=== PATIENT | female | born 1935 ===

== ENCOUNTER 2017-03-02 09:02 | Inpatient (IN) | payer MEDICARE, OTHER ==
[2017-03-02] MEDS ORDERED: Sodium Chloride 0.9% 1,000 ML IV ONE (09:55)
--- NOTE | 2017-03-02 09:59 | C.PDOC ---
History Of Present Illness 81 yr old female with PMHx of HTN, presents to the ER for upper abdominal pain for 1 day. Patient also reports of associated with multiple non bilious vomiting. Patient denies fever, chest pain, SOB, nausea, vomiting, diarrhea, constipation, weakness or numbness. Time Seen by Provider: 03/02/17 09:21 Chief Complaint (Nursing): Abdominal Pain History Per: Patient History/Exam Limitations: no limitations Onset/Duration Of Symptoms: Days (1) Current Symptoms Are (Timing): Still Present Past Medical History Reviewed: Historical Data, Nursing Documentation, Vital Signs Vital Signs: Last Vital Signs Temp 97.6 F 03/02/17 11:42 Pulse 67 03/02/17 11:42 Resp 18 03/02/17 11:42 BP 133/68 03/02/17 11:42 Pulse Ox 98 03/02/17 16:23 - Medical History PMH: Cardia Arrhythmia, HTN Family History: States: No Known Family Hx - Social History Hx Tobacco Use: No Hx Alcohol Use: No Hx Substance Use: No - Immunization History Hx Tetanus Toxoid Vaccination: No Hx Influenza Vaccination: No Hx Pneumococcal Vaccination: No Review Of Systems Except As Marked, All Systems Reviewed And Found Negative. Constitutional: Negative for: Fever Cardiovascular: Negative for: Chest Pain Respiratory: Negative for: Shortness of Breath Gastrointestinal: Positive for: Abdominal Pain (Upper). Negative for: Nausea, Vomiting, Diarrhea, Constipation Neurological: Negative for: Weakness, Numbness Physical Exam - Physical Exam Appears: Well, Non-toxic, No Acute Distress Skin: Warm, Dry, No Rash Head: Atraumatic, Normacephalic Oral Mucosa: Dry Throat: Normal, No Erythema, No Exudate Chest: Symmetrical, No Tenderness Cardiovascular: Rhythm Regular, No Murmur Respiratory: Normal Breath Sounds, No Rales, No Rhonchi, No Wheezing Gastrointestinal/Abdominal: Soft, Tenderness (Mild upper abdominal tenderness), No Mass, No Guarding, No Rebound Back: Normal Inspection, No CVA Tenderness Extremity: Normal ROM, No Swelling Neurological/Psych: Oriented x3, Normal Speech, Normal Motor, Normal Sensation ED Course And Treatment - Laboratory Results Result Diagrams: 03/02/17 10:10 03/02/17 10:10 Lab Interpretation: Abnormal ECG: Interpreted By Me, Viewed By Me ECG Rhythm: Sinus Rhythm ECG Interpretation: Normal Rate From EC (BPM) O2 Sat by Pulse Oximetry: 98 (RA) Pulse Ox Interpretation: Normal - CT Scan/US CT - Abd & Pelvis Other Rad Studies (CT/US): Read By Radiologist, Radiology Report Reviewed CT/US Interpretation: PROCEDURE: CT Abdomen and Pelvis without intravenous contrast. HISTORY: Pain. COMPARISON: 01/31/2017. TECHNIQUE: Without contrast.. Contrast Dose: 0. Radiation dose: Total exam DLP = 275.93 mGy-cm. This CT exam was performed using one or more of the following dose reduction techniques: Automated exposure control, adjustment of the mA and/or kV according to patient size, and/or use of iterative reconstruction technique. FINDINGS: LOWER THORAX: No infiltrate/ pleural effusion. Minimal subsegmental atelectasis in lingular segment left upper lobe. Small hiatal hernia. LIVER: Unremarkable. No gross lesion or ductal dilatation. GALLBLADDER AND BILE DUCTS: Unremarkable. PANCREAS: Unremarkable. No gross lesion or ductal dilatation. SPLEEN: Unremarkable. ADRENALS: Unremarkable. No mass. KIDNEYS AND URETERS: Unremarkable. No hydronephrosis. No solid mass. VASCULATURE: Unremarkable. No aortic aneurysm. BOWEL: The appendix is enlarged, measuring up to 14 mm in diameter. There is no clear luminal fluid identified. There is periappendiceal inflammatory change noted in the surrounding fat. There are small reactive nodes seen medial to the cecum. There is no periappendiceal abscess. There is no evidence free intraperitoneal air. Findings are consistent with acute appendicitis. There is diverticulosis of the sigmoid colon. There is no evidence of diverticulitis. There is no bowel obstruction. No other abnormal bowel loops are identified. APPENDIX: As above. PERITONEUM: Unremarkable. No free fluid. No free air. LYMPH NODES: Unremarkable. No enlarged lymph nodes. BLADDER: Unremarkable. REPRODUCTIVE: Unremarkable postmenopausal uterus. BONES: No acute fracture. OTHER FINDINGS : None. IMPRESSION: Findings consistent with acute uncomplicated appendicitis. No periappendiceal abscess or evidence of perforation. Additional minor findings as above. The finding of acute appendicitis was discussed by telephone with Katerina Rodriguez APN., at 12:16 p.m. on 03/02/2017. Progress Note: Treated with IVF NSS and zofran. Rocephin 1 GM IV. On re- evaluation abdomen soft. Case discussed and patient evaluated by Dr Cain and requests admission to medical service Reassessment Condition: Improved - Physician Consult Information Physician Contacted: Luz Marina Alfaro Outcome Of Conversation: admit to hospitalis Medical Decision Making Medical Decision Making: PLAN: * CT - Abd & Pelvis * EKG * CBC * Urinalysis * Zofran IVP * sodium Chloride IV Disposition Discussed With Dr.: Edgardo Long Doctor Will See Patient In The: Hospital - Disposition Disposition: HOSPITALIZED Disposition Time: 16:30 Condition: STABLE - POA Present On Arrival: None - Clinical Impression Clinical Impression: Abdominal pain, Appendicitis, unqualified - PA / FAMILY PRACTITIONER / Resident Statement MD/DO has reviewed & agrees with the documentation as recorded. - Scribe Statement The provider has reviewed the documentation as recorded by the Scribe Krupa Amaral All medical record entries made by the Scribe were at my direction and personally dictated by me. I have reviewed the chart and agree that the record accurately reflects my personal performance of the history, physical exam, medical decision making, and the department course for this patient. I have also personally directed, reviewed, and agree with the discharge instructions and disposition. Decision To Admit - Pt Status Changed To: Hospital Disposition Of: Inpatient - Admit Certification Admit to Inpatient:: After my assessment, the patient will require hospitalization for at least two midnights. This is because of the severity of symptoms shown, intensity of services needed, and/or the medical risk in this patient being treated as an outpatient. - InPatient: Physician Admission Certification:: Abdominal Pain. Dilated Appendix - . Bed Request Type: Regular Admitting Physician: Edgardo Long Patient Diagnosis: Abdominal pain
[2017-03-02 10:16] LABS: BASO % 0.2 % (0.0-2.0); EOS # 0.1 K/uL (0.0-0.7); EOS % 0.7 % (0.0-4.0); HEMATOCRIT 39.4 % (34.0-47.0); LYMPH # 0.8 K/uL (1.0-4.3); LYMPH % 6.9 % (20.0-40.0); MEAN CELL VOLUME 85.3 fL (81.0-99.0); MEAN CORPUSCULAR HEMOGLOBIN 28.1 pg (27.0-31.0); MEAN PLATELET VOLUME 12.1 fL (7.2-11.7); MONO # 0.9 K/uL (0.0-0.8); MONO % 7.2 % (0.0-10.0); PLATELET COUNT 144 K/uL (130-400); RED CELL DISTRIBUTION WIDTH 13.8 % (11.5-14.5); WHITE BLOOD COUNT 12.1 K/uL (4.8-10.8)
[2017-03-02 10:22] LABS: RBC URINE 3 /hpf (0-3); URINE BACTERIA RARE (<OCC); URINE BILIRUBIN NEGATIVE (NEGATIVE); URINE BLOOD NEGATIVE (NEGATIVE); URINE COLOR Yellow (YELLOW); URINE GLUCOSE (UA) 1+ mg/dL (Normal); URINE KETONE NEGATIVE (NEGATIVE); URINE LEUKOCYTE ESTERASE 2+ Leu/uL (Negative); URINE PROTEIN 1+ mg/dL (NEGATIVE); URINE UROBILINOGEN NORMAL mg/dL (0.2-1.0); WBC URINE 21 /hpf (0-5)
[2017-03-02 10:23] LABS: CHLORIDE 100 mmol/L (98-107); POTASSIUM 3.8 mmol/L (3.6-5.2); SODIUM 141 mmol/L (132-148)
[2017-03-02 10:25] LABS: AST/SGOT 32 U/L (14-36); BILIRUBIN,TOTAL 0.7 mg/dL (0.2-1.3); CARBON DIOXIDE 25 mmol/L (22-30); GFR AFRICAN-AMERICAN > 60
[2017-03-02 10:26] LABS: ALB/GLOB RATIO 1.2 (1.0-2.1); ALKALINE PHOSPHATASE 71 U/L (38-126); ALT/SGPT 20 U/L (9-52); BLOOD UREA NITROGEN 15 mg/dL (7-17); CALCIUM 8.2 mg/dl (8.6-10.4); GLUCOSE,RANDOM 109 mg/dL (65-105); TOTAL PROTEIN 7.6 g/dL (6.3-8.3)
[2017-03-02] MEDS ORDERED: Sodium Chloride 0.9% 1,000 ML ONE (10:28)
[2017-03-02 10:39] LABS: NEUTROPHIL 82 % (50-75); REACTIVE LYMPHOCYTES 1 % (0-0); TOTAL CELLS COUNTED 100
[2017-03-02 10:41] LABS: LARGE PLATELETS PRESENT
--- NOTE | 2017-03-02 12:19 | CT ---
PROCEDURE: CT Abdomen and Pelvis without intravenous contrast HISTORY: Pain COMPARISON: 01/31/2017 TECHNIQUE: Without contrast.. Contrast Dose: 0 Radiation dose: Total exam DLP = 275.93 mGy-cm. This CT exam was performed using one or more of the following dose reduction techniques: Automated exposure control, adjustment of the mA and/or kV according to patient size, and/or use of iterative reconstruction technique. FINDINGS: LOWER THORAX: No infiltrate/ pleural effusion. Minimal subsegmental atelectasis in lingular segment left upper lobe. Small hiatal hernia. LIVER: Unremarkable. No gross lesion or ductal dilatation. GALLBLADDER AND BILE DUCTS: Unremarkable. PANCREAS: Unremarkable. No gross lesion or ductal dilatation. SPLEEN: Unremarkable. ADRENALS: Unremarkable. No mass. KIDNEYS AND URETERS: Unremarkable. No hydronephrosis. No solid mass. VASCULATURE: Unremarkable. No aortic aneurysm. BOWEL: The appendix is enlarged, measuring up to 14 mm in diameter. There is no clear luminal fluid identified. There is periappendiceal inflammatory change noted in the surrounding fat. There are small reactive nodes seen medial to the cecum. There is no periappendiceal abscess. There is no evidence free intraperitoneal air. Findings are consistent with acute appendicitis. There is diverticulosis of the sigmoid colon. There is no evidence of diverticulitis. There is no bowel obstruction. No other abnormal bowel loops are identified. APPENDIX: As above PERITONEUM: Unremarkable. No free fluid. No free air. LYMPH NODES: Unremarkable. No enlarged lymph nodes. BLADDER: Unremarkable. REPRODUCTIVE: Unremarkable postmenopausal uterus BONES: No acute fracture. OTHER FINDINGS: None. IMPRESSION: Findings consistent with acute uncomplicated appendicitis. No periappendiceal abscess or evidence of perforation. Additional minor findings as above. The finding of acute appendicitis was discussed by telephone with Katerina Rodriguez APN., at 12:16 p.m. on 03/02/2017.
[2017-03-02] MEDS ORDERED: Piperacillin/Tazobact 3.375 gm 100 ML IV STA (12:46)
[2017-03-02] MEDS ORDERED: Piperacillin/Tazobact 3.375 gm 100 ML IVPB ONE ×2 (13:06→20:53)
--- NOTE | 2017-03-02 13:53 | RAD ---
HISTORY: pre-op COMPARISON: 03/02/2017. FINDINGS: LUNGS: The lungs are clear. PLEURA: No significant pleural effusion identified, no pneumothorax apparent. CARDIOVASCULAR: Normal. OSSEOUS STRUCTURES: No significant abnormalities. VISUALIZED UPPER ABDOMEN: Normal. OTHER FINDINGS: None. IMPRESSION: No active pulmonary disease.
[2017-03-02] MEDS: Sodium Chloride 0.9% 1,000 ML IV SCH ×2 (14:00→23:30)
--- NOTE | 2017-03-02 14:36 | CARD ---
APPROVED REPORT EKG Measurement Heart [id number] <Conclusion> Normal sinus rhythm Normal ECG
--- NOTE | 2017-03-02 16:35 | CP.PCM.CON ---
History of Present Illness - History of Present Illness History of Present Illness: General Surgery Consult Dr. Cain CC: abd pain, vomiting HPI: 81 y/o F w/ PMHx of HTN, HLD, palpitations, and vertigo presents to the ED w/ abdominal pain and vomiting. Abd pain x few months, unchanged. Pt states the abd pain is constant, currently worst in the RLQ. Nothing makes the pain better or worse. Pt reports vomiting and food intolerance since last evening. Pt admits to intermittent episodes of vomiting x few months but never as consistent as last evening. Pt denies dizziness, CP, SOB, D/C, hematochezia, or dysuria. PMHx: HTN, HLD, palpitations, angina, vertigo Meds: reviwed in chart Allergy: PCN PSH: cataract, SHx: denies T, EtOH, drugs FHx: noncontributory Review of Systems - Review of Systems All systems: reviewed and no additional remarkable complaints except (as per HPI ) Past Patient History - Infectious Disease Hx of Infectious Diseases: None - Past Social History Smoking Status: Never Smoked - CARDIAC Hx Cardia Arrhythmia: Yes Hx Hypercholesterolemia: Yes Hx Hypertension: Yes - HEENT Hx Cataracts: Yes - PSYCHIATRIC Hx Substance Use: No - SURGICAL HISTORY Hx Surgeries: Yes Other/Comment: eye surgeries - ANESTHESIA Hx Anesthesia: Yes Hx Anesthesia Reactions: No Meds Allergies/Adverse Reactions: Allergies Allergy/AdvReac Type Severity Reaction Status Date / Time No Known Allergies Allergy Verified 08/27/14 14:51 - Medications Medications: Current Medications Sodium Chloride (Sodium Chloride 0.9%) 1,000 mls @ 100 mls/hr IV .Q10H ERUM Last Admin: 03/02/17 14:00 Dose: 100 mls/hr Physical Exam - Constitutional Appears: Non-toxic, No Acute Distress - Head Exam Head Exam: ATRAUMATIC, NORMOCEPHALIC - Eye Exam Eye Exam: EOMI. absent: Scleral icterus Pupil Exam: absent: Irregular - ENT Exam ENT Exam: Mucous Membranes Moist - Respiratory Exam Respiratory Exam: NORMAL BREATHING PATTERN. absent: Accessory Muscle Use, Respiratory Distress - Cardiovascular Exam Cardiovascular Exam: absent: Bradycardia, Tachycardia - GI/Abdominal Exam GI & Abdominal Exam: Soft, Tenderness (TTP diffusely. worst in RLQ). absent: Distended, Firm, Guarding Additional comments: (-) Psoas, Rosvings, Obturator sign - Extremities Exam Extremities exam: Positive for: normal inspection - Neurological Exam Neurological exam: Alert, Oriented x3 - Psychiatric Exam Psychiatric exam: Normal Affect, Normal Mood - Skin Skin Exam: Dry, Intact, Warm Results - Vital Signs Recent Vital Signs: Last Vital Signs Temp 97.6 F 03/02/17 11:42 Pulse 67 03/02/17 11:42 Resp 18 03/02/17 11:42 BP 133/68 03/02/17 11:42 Pulse Ox 98 03/02/17 16:27 - Labs Result Diagrams: 03/02/17 10:10 03/02/17 10:10 Labs: Laboratory Results - last 24 hr 03/02/17 10:10 WBC 12.1 H D RBC 4.62 Hgb 13.0 Hct 39.4 MCV 85.3 D MCH 28.1 MCHC 33.0 RDW 13.8 Plt Count 144 MPV 12.1 H Neut % (Auto) 85.0 H Lymph % (Auto) 6.9 L [place] % (Auto) 7.2 Eos % (Auto) 0.7 Baso % (Auto) 0.2 Neut # 10.3 H Lymph # 0.8 L [place] # 0.9 H Eos # 0.1 Baso # 0.0 Neutrophils % (Manual) 82 H Band Neutrophils % 9 H Lymphocytes % (Manual) 3 L Reactive Lymphs % 1 H Monocytes % (Manual) 5 Platelet Estimate Normal Large Platelets Present RBC Morphology Normal Sodium 141 Potassium 3.8 Chloride 100 Carbon Dioxide 25 Anion Gap 19 BUN 15 Creatinine 0.8 Est GFR ( Amer) > 60 Est GFR (Non-Af Amer) > 60 Random Glucose 109 H Calcium 8.2 L Total Bilirubin 0.7 AST 32 ALT 20 Alkaline Phosphatase 71 Total Protein 7.6 Albumin 4.1 Globulin 3.4 Albumin/Globulin Ratio 1.2 Lipase 63 Urine Color Yellow Urine Clarity Hazy Urine pH 7.0 Ur Specific [place] 1.016 Urine Protein 1+ H Urine Glucose (UA) 1+ Urine Ketones Negative Urine Blood Negative Urine Nitrate Negative Urine Bilirubin Negative Urine Urobilinogen Normal Ur Leukocyte Esterase 2+ H Urine WBC (Auto) 21 H Urine RBC (Auto) 3 Ur Squamous Epith Cells 3 Urine Bacteria Rare - Imaging and Cardiology CT scan - abdomen Status: Image reviewed by me, Report reviewed by me Chest x-ray Status: Image reviewed by me Assessment & Plan - Assessment and Plan (Free Text) Assessment: 81 y/o F w/ abdominal pain, nausea and vomiting - NPO - IVF - Zosyn 3.375mg - Zofran 4mg Q4 PRN nausea - pain management - recommend CTA to r/o Chronic Mesenteric Ischemia - Vascular consult pending CTA - GI consult --> pt sees Dr. Antonio - OR Tuesday for Lap Appy Pt seen and discussed w/ Dr. Ant Garcia PGY-1
--- NOTE | 2017-03-02 17:23 | CP.PCM.HP ---
<Jose Angel Abdi - Last Filed: 03/02/17 18:30> History of Present Illness - History of Present Illness History of Present Illness: CC: "Abdominal pain, nausea" HPI: Pt is an 81 year old female with a PMHx of HTN, arrythmia, syncope, CVA ( 1998), anxiety, and depression who presented to the ED with complaints of abdominal pain and vomiting. Pt reports that that she has been experiencing abdominal pain for over a year, but it has become worse this past month. She reports that her pain is currently diffusely across her lower abdomen. She reports that the pain is constant and a 9 out of 10. She reports that sometimes the pain gets less severe, but it is always present. She reports that she has a decreased appetite for the past month. She doesn't report any improvement or worsening of the pain with eating. She reports that she sometimes takes Aleve for the pain which moderately helps. She reports that she vomited last night and today. Pt denies any diarrhea or constipation. Pt also reports that she has been experiencing chills for the past 2 days. Pt reports that she had a colonoscopy done with Dr. Antonio on February 182016. Pt denies fever, chest pain, shortness of breath, headache. PMHx: HTN, arrythmia, syncope, CVA (1998), anxiety, and depression Home Medications: Metoprolol 50 mg po bid, lorazepam 0.5 mg po qd, amlodipine 10 mg po qd, duloxetine 60 mg po qd, losartan 50 mg po qd, rosuvastatin calcium 10 mg po qd Allergies: NKDA Past Surgical Hx: b/l cataracts, Social Hx: denies hx of tobacco, alcohol, drug use Family Hx: Colon Cancer (sister), Prostate cancer (father), MS ( mother) Present on Admission - Present on Admission Any Indicators Present on Admission: No Review of Systems - Constitutional Constitutional: Chills, Lethargy, Weakness. absent: Fever - EENT Eyes: absent: Blurred Vision, Change in Vision Ears: absent: Dizziness Nose/Mouth/Throat: absent: Epistaxis - Cardiovascular Cardiovascular: absent: Chest Pain, Dyspnea, Leg Edema - Respiratory Respiratory: absent: Cough, Hemoptysis, Wheezing - Gastrointestinal Gastrointestinal: Abdominal Pain, Vomiting. absent: Hematochezia, Melena, Nausea Additional comments: Diffuse lower abdominal pain - Menstruation Menstruation: Amenorrhea - Musculoskeletal Musculoskeletal: absent: Numbness, Tingling - Integumentary Integumentary: absent: Rash - Neurological Neurological: absent: Disequilibrium, Dizziness, Headaches - Psychiatric Psychiatric: Anxiety - Hematologic/Lymphatic Hematologic: absent: Easy Bleeding, Easy Bruising Past Patient History - Infectious Disease Hx of Infectious Diseases: None - Past Social History Smoking Status: Never Smoked - CARDIAC Hx Cardia Arrhythmia: Yes Hx Hypercholesterolemia: Yes Hx Hypertension: Yes - HEENT Hx Cataracts: Yes - PSYCHIATRIC Hx Substance Use: No - SURGICAL HISTORY Hx Surgeries: Yes Other/Comment: eye surgeries - ANESTHESIA Hx Anesthesia: Yes Hx Anesthesia Reactions: No Meds Allergies/Adverse Reactions: Allergies Allergy/AdvReac Type Severity Reaction Status Date / Time No Known Allergies Allergy Verified 08/27/14 14:51 Physical Exam - Constitutional Appears: No Acute Distress - Head Exam Head Exam: ATRAUMATIC, NORMOCEPHALIC - Eye Exam Eye Exam: EOMI, PERRL - ENT Exam ENT Exam: Mucous Membranes Moist. absent: Mucous Membranes Dry - Neck Exam Neck exam: Positive for: Full Rom. Negative for: Lymphadenopathy (0) - Respiratory Exam Respiratory Exam: Clear to Auscultation Bilateral. absent: Rales, Rhonchi, Wheezes - Cardiovascular Exam Cardiovascular Exam: +S1, +S2. absent: Gallop, Rubs - GI/Abdominal Exam GI & Abdominal Exam: Hypoactive Bowel Sounds, Soft, Tenderness. absent: Distended, Firm, Guarding Additional comments: diffuse abdominal tenderness - Extremities Exam Extremities exam: Positive for: full ROM. Negative for: pedal edema - Neurological Exam Neurological exam: Alert, Oriented x3 - Psychiatric Exam Psychiatric exam: Normal Affect, Normal Mood Results - Vital Signs Recent Vital Signs: Last Vital Signs Temp 97.6 F 03/02/17 11:42 Pulse 67 03/02/17 11:42 Resp 18 03/02/17 11:42 BP 133/68 03/02/17 11:42 Pulse Ox 98 03/02/17 16:27 - Labs Result Diagrams: 03/02/17 10:10 03/02/17 10:10 Assessment & Plan - Assessment and Plan (Free Text) Assessment: Diffuse Lower Abdominal Pain: WBC 12.0 Afebrile, nontachycardic EKG-NSR, no ST changes (please see full report) CXR - no active disease Abd/Pelvis CT w/o contrast - enlarged appendix, 14 mm, periappendiceal inflammatory changes; no periappendiceal abscess; diverticulosis of sigmoid colon, no diverticulitis; no bowel obstruction; acute, uncomplicated appendicitis (please see full report) Surgery, Dr. Cain, consulted. Help appreciated. GI, Dr. Antonio, consulted. Help appreciated. Cardiology, Dr. Olson, consulted for cardiac clearance. Help appreciated. Abd/Pelvis CT-A to r/o mesenteric ischemia pending Echocardiogram pending NPO diet Zosyn 3.375 gm IV q6h NS 100 cc/hr HTN: Hydralazine 10 mg IV q6h prn for SBP >160 Home medications of metoprolol, losartan, amlodipine held since pt is NPO Hyperlipidemia: Home medication of rosuvostatin held since pt is NPO Anxiety/Depression: Ativan 0.1 mg IV once prn Home medication of cymbalta held Prophylactic Measures: GI: Protonix 40 mg IV qd DVT: SCDs, Heparin 5000 units sc q8h <Carrie Keith V - Last Filed: 03/03/17 09:30> Results - Vital Signs Recent Vital Signs: Last Vital Signs Temp 99.4 F 03/03/17 07:00 Pulse 104 H 03/03/17 07:00 Resp 18 03/03/17 07:00 BP 108/61 03/03/17 07:00 Pulse Ox 96 03/03/17 07:00 - Labs Result Diagrams: 03/03/17 07:10 03/03/17 07:10 Labs: Laboratory Results - last 24 hr 03/02/17 03/03/17 22:44 07:10 WBC 15.4 H RBC 4.32 Hgb 12.1 Hct 36.7 MCV 84.8 MCH 28.0 MCHC 33.0 RDW 13.8 Plt Count 126 L MPV 12.0 H Neut % (Auto) 85.7 H Lymph % (Auto) 7.6 L [place] % (Auto) 6.2 Eos % (Auto) 0.1 Baso % (Auto) 0.4 Neut # 13.2 H Lymph # 1.2 [place] # 1.0 H Eos # 0.0 Baso # 0.1 Neutrophils % (Manual) 72 Band Neutrophils % 12 H* Lymphocytes % (Manual) 3 L Reactive Lymphs % 4 H Monocytes % (Manual) 8 Basophils % (Manual) 1 Toxic Granulation Present Platelet Estimate Slightly decreased L Large Platelets Present RBC Morphology Normal PT 12.2 INR 1.1 APTT 30 Sodium 139 Potassium 3.4 L Chloride 104 Carbon Dioxide 23 Anion Gap 15 BUN 10 Creatinine 0.9 Est GFR ( Amer) > 60 Est GFR (Non-Af Amer) 60 Random Glucose 121 H Lactic Acid 1.0 Calcium 7.1 L Phosphorus 3.1 Magnesium 1.8 Total Bilirubin 1.4 H AST 24 ALT 17 Alkaline Phosphatase 56 Total Protein 6.5 Albumin 3.5 Globulin 3.0 Albumin/Globulin Ratio 1.2 Attending/Attestation - Attestation I have personally seen and examined this patient.: Yes I have fully participated in the care of the patient.: Yes I have reviewed all pertinent clinical information: Yes Notes (Text): This is late computer entry for 03/02/17. Patient seen, examined, and case discussed with day-time resident. Patient seen in [facility] Bed 14 on 03/02/17 at approximately 5:30PM accompanied with her two daughers at bedside. Patient's primary care doctor is Dr. Luz Marina Painter who is unable to admit the patient at this time and asked hospitalist service to admit. Patient reports she was nauseous of one day, nonbloody, non bililous about 2x, with associated abdominal pain which she characterized as "gas" located lower abdominal quadrants for past day. Patient reports she is a picky eater at bedside, but was able to tolerate taking her medications this morning and small bites she chooses to eat. Patient reports she takes one pill of Advil a day for the pain. Patient reports she has had a recent colonoscopy with her GI doctor: Dr. Antonio but has not followed up regarding results. Patient also reports urinary frequency, denies hesistancy, denies dysuria, where she goes to the bathroom more than intended. Patient describes herself as independent person, performs ADLS by herself and confirmed by daughter who reports she tries to help her but patient refuses. Reviewed CT scan result and prior CT abdomen from a month ago. On my exam; patient is pleasant, awake, alert, oriented X3, no acute distress Cardio: s1, S2, regular, rate, and rhythm, Lungs: CTA b/l no w/r/r, Abdomen: soft, nondistended, negative bauer's disease, no apparent rigidity, no guarding , when patient is distracted, patient appears to not have tenderness on deep palpation over the right and left lower quadrants; however, patient is not distracted she reports she has pain (exam without pain medication on board), no suprpubic tenderness illicted, able to passively move lower and upper extremities without difficulty. Discussed with patient's primary care doctor who the patient is well-known to her, and confirms history of hypertension, hyperlipidemia, prior CVA in 99 (no residual weakness), hx of vertigo, panic attacks, and anxiety. Discussed my abdominal exam with her as well as surgery recommendations; supports medical management and understands given patient is presenting with white count and shift, appendicitis is plausible in comparsion with prior hospitalization. Request Dr. Olson for cardiology for cardiac clearance if patient needs surgery. To call her for any updates. Assessment/Plan Abdominal Pain * Abd/Pelvis CT w/o contrast - enlarged appendix, 14 mm, periappendiceal inflammatory changes; no periappendiceal abscess; diverticulosis of sigmoid colon, no diverticulitis; no bowel obstruction; acute, uncomplicated appendicitis (please see full report) * Per surgery, r/o chronic mesenteric ischemia; going for Angio CT * General surgery (Dr. Cain) on board * Gastroenterology (Dr. Antonio) on board-->patient's GI doctor; had a recent colonoscopy with him; does not know results. * Cardiology (Dr. Olson) on board-->requested by patient's primary doctor, Luz Marina Vallejo for possible cardiac clearance * Abx: Zosyn 3.375g IV Q 6hours and Flagyl 500mg IV Q 8 hours * Patient is NPO * Echocardiogram order to establish baseline * NS 100 cc/hr Frequency Urinary Tract infection * Abnormal UA; awaiting urine culture * Patient is currently on Zosyn which should help cover for UTI Leukocytosis * possible appendicitis based on CT scan * r/o other infectious sources including Blood cultures X2 Urine culture HTN: * Hydralazine 10 mg IV q6h prn for SBP >160 * Held Home medications of metoprolol, losartan, amlodipine patient is NPO Hyperlipidemia: * Home medication of rosuvostatin held since pt is NPO Anxiety/Depression: * Ativan 0.5 mg IV once prn * Home medication of cymbalta and Ativan held seocndary to NPO Prophylactic Measures: * GI: Protonix 40 mg IV qd * DVT: SCDs, Heparin 5000 units sc q8h
[2017-03-02] MEDS ORDERED: Barium Sulfate Susp 0.1% w/v, 0.1% w/w 450 mL Bottle PO ONE (18:38)
[2017-03-02] MEDS ORDERED: Iodixanol 320 MG/ML 100 ML BOTTLE IV ONE (19:44)
[2017-03-02] MEDS: Piperacillin/Tazobact 3.375 GM in Sodium Chloride 100 ML IVPB SCH (20:35)
[2017-03-02] MEDS: metroNIDAZOLE IV 500 mg/100 ml 100 ML IVPB SCH (22:26)
[2017-03-02] MEDS ORDERED: METRONIDAZOLE 500 MG/100 ML ONE (22:26)
[2017-03-02] MEDS ORDERED: metroNIDAZOLE IV 500 mg/100 ml 100 ML ONE (22:33)
[2017-03-02 22:57] LABS: INR 1.1
--- NOTE | 2017-03-02 23:41 | CP.PCM.CON ---
History of Present Illness - History of Present Illness History of Present Illness: 81 with HTN, Arthritis admitted with abd pain, CT with AP, f/u with echo, elevated WBC, seen by surgery, considering ischemic bowel, f/u with CT angio Review of Systems - Review of Systems Systems not reviewed;Unavailable: Acuity of Condition - Constitutional Constitutional: Anorexia, Weakness - EENT Eyes: absent: Discharge Ears: absent: Ear Discharge, Dizziness Nose/Mouth/Throat: absent: Epistaxis - Cardiovascular Cardiovascular: absent: Acrocyanosis, Chest Pain, Diaphoresis, Leg Edema, Palpitations, Syncope - Respiratory Respiratory: absent: Cough, Dyspnea, Hemoptysis - Gastrointestinal Gastrointestinal: Abdominal Pain, Constipation. absent: Diarrhea, Hematochezia , Vomiting - Genitourinary Genitourinary: absent: Change in Urinary Stream Past Patient History - Infectious Disease Hx of Infectious Diseases: None - Past Social History Smoking Status: Never Smoked - CARDIAC Hx Cardia Arrhythmia: Yes Hx Hypercholesterolemia: Yes Hx Hypertension: Yes - HEENT Hx Cataracts: Yes - PSYCHIATRIC Hx Substance Use: No - SURGICAL HISTORY Hx Surgeries: Yes Other/Comment: eye surgeries - ANESTHESIA Hx Anesthesia: Yes Hx Anesthesia Reactions: No Meds Allergies/Adverse Reactions: Allergies Allergy/AdvReac Type Severity Reaction Status Date / Time No Known Allergies Allergy Verified 08/27/14 14:51 - Medications Medications: Current Medications Heparin Sodium (Porcine) (Heparin) 5,000 units SC Q8 [facility] Hydralazine HCl (Apresoline) 10 mg IVP Q6H PRN PRN Reason: Systolic Blood Pressure Sodium Chloride (Sodium Chloride 0.9%) 1,000 mls @ 100 mls/hr IV .Q10H [facility] Last Admin: 03/02/17 14:00 Dose: 100 mls/hr Piperacillin Sod/Tazobactam (Sod 3.375 gm/ Sodium Chloride) 100 mls @ 200 mls/ hr IVPB Q6H [facility] Last Admin: 03/02/17 20:35 Dose: 200 mls/hr Metronidazole (Flagyl) 100 mls @ 100 mls/hr IVPB Q8 [facility] Last Admin: 03/02/17 22:26 Dose: 100 mls/hr Lorazepam (Ativan) 0.5 mg IVP ONCE PRN PRN Reason: Anxiety Ondansetron HCl (Zofran Inj) 4 mg IVP Q6H PRN PRN Reason: Nausea/Vomiting Pantoprazole Sodium (Protonix Inj) 40 mg IVP DAILY [facility] Physical Exam - Constitutional Appears: Non-toxic - Head Exam Head Exam: ATRAUMATIC - Eye Exam Eye Exam: EOMI - ENT Exam ENT Exam: Mucous Membranes Moist - Neck Exam Neck exam: Negative for: Lymphadenopathy, Thyromegaly - Respiratory Exam Respiratory Exam: Clear to Auscultation Bilateral. absent: Rales - Cardiovascular Exam Cardiovascular Exam: REGULAR RHYTHM, Systolic Murmur - GI/Abdominal Exam GI & Abdominal Exam: Guarding, Normal Bowel Sounds, Rebound. absent: Organomegaly - Rectal Exam Rectal Exam: Deferred - Extremities Exam Extremities exam: Positive for: normal capillary refill. Negative for: calf tenderness - Neurological Exam Neurological exam: Alert, Oriented x3 - Psychiatric Exam Psychiatric exam: Normal Affect - Skin Skin Exam: Dry Results - Vital Signs Recent Vital Signs: Last Vital Signs Temp 99.1 F 03/02/17 22:28 Pulse 96 H 03/02/17 22:28 Resp 18 03/02/17 22:28 BP 115/54 L 03/02/17 22:28 Pulse Ox 97 03/02/17 22:28 - Labs Result Diagrams: 03/03/17 07:10 03/03/17 07:10 Labs: Laboratory Results - last 24 hr 03/02/17 22:44 PT 12.2 INR 1.1 APTT 30 Lactic Acid 1.0 Assessment & Plan (1) Abdominal pain Status: Acute (2) Appendicitis, unqualified Status: Acute (3) Pre-procedural cardiovascular examination Status: Acute
[2017-03-03] MEDS: Piperacillin/Tazobact 3.375 GM in Sodium Chloride 100 ML IVPB SCH ×6 (00:15→21:23)
[2017-03-03] MEDS: Sodium Chloride 0.9% 1,000 ML IV SCH ×3 (05:16→21:26)
[2017-03-03] MEDS: metroNIDAZOLE IV 500 mg/100 ml 100 ML IVPB SCH ×3 (06:27→21:24)
[2017-03-03 07:18] LABS: BASO # 0.1 K/uL (0.0-0.2); HEMATOCRIT 36.7 % (34.0-47.0); RED CELL DISTRIBUTION WIDTH 13.8 % (11.5-14.5)
[2017-03-03 07:26] LABS: BASO % 0.4 % (0.0-2.0); EOS % 0.1 % (0.0-4.0); LYMPH # 1.2 K/uL (1.0-4.3); LYMPH % 7.6 % (20.0-40.0); MEAN CELL VOLUME 84.8 fL (81.0-99.0); MONO % 6.2 % (0.0-10.0); NRBC % 0.2 % (0.0-2.0); WHITE BLOOD COUNT 15.4 K/uL (4.8-10.8)
[2017-03-03 07:30] LABS: PLATELET COUNT 126 K/uL (130-400)
[2017-03-03 07:48] LABS: CHLORIDE 104 mmol/L (98-107); POTASSIUM 3.4 mmol/L (3.6-5.2); SODIUM 139 mmol/L (132-148)
[2017-03-03 07:50] LABS: ALB/GLOB RATIO 1.2 (1.0-2.1); ALKALINE PHOSPHATASE 56 U/L (38-126); AST/SGOT 24 U/L (14-36); BILIRUBIN,TOTAL 1.4 mg/dL (0.2-1.3); BLOOD UREA NITROGEN 10 mg/dL (7-17); CARBON DIOXIDE 23 mmol/L (22-30); GFR AFRICAN-AMERICAN > 60; GLUCOSE,RANDOM 121 mg/dL (65-105); TOTAL PROTEIN 6.5 g/dL (6.3-8.3)
[2017-03-03 07:51] LABS: ALT/SGPT 17 U/L (9-52); CALCIUM 7.1 mg/dl (8.6-10.4); MAGNESIUM 1.8 mg/dL (1.6-2.3); PHOSPHOROUS 3.1 mg/dL (2.5-4.5)
[2017-03-03 08:39] LABS: BASOPHIL 1 % (0-2); NEUTROPHIL 72 % (50-75); REACTIVE LYMPHOCYTES 4 % (0-0); TOTAL CELLS COUNTED 100
[2017-03-03 08:40] LABS: LARGE PLATELETS PRESENT
[2017-03-03] MEDS ORDERED: Potassium Chloride 20 mEq ER Tab PO ONE (09:02)
[2017-03-03] MEDS ORDERED: Potassium Chloride 20 mEq 100 ML IVPB ONE (10:16)
--- NOTE | 2017-03-03 10:28 | CT ---
PROCEDURE: CT Angiography Abdomen, Pelvis and Lower Extremity with Contrast HISTORY: diffuse abdominal pain, r/o mesenteric ischemia COMPARISON: None. TECHNIQUE: Technique: CT angiography of the abdomen, pelvis and bilateral lower extremities performed in the arterial phase of enhancement. Coronal and sagittal reformats, and well as rotating MIP images of the vessels generated at the workstation. Intravenous contrast dose: 100 milliliters Visipaque 320 Radiation dose: Total exam DLP = 634.88 MGy-cm. This CT exam was performed using one or more of the following dose reduction techniques: Automated exposure control, adjustment of the mA and/or kV according to patient size, and/or use of iterative reconstruction technique. FINDINGS: CT ANGIOGRAPHY: ABDOMINAL AORTA:: Mild calcific plaque throughout the aorta without dissection, stenosis or aneurysm. MAJOR AORTIC BRANCHES: Celiac [place]: Unremarkable. Mild calcific plaque in the proximal celiac artery with no stenosis. Superior mesenteric artery: There is moderate plaque throughout the proximal portion of the SMA. There is no stenosis or thrombus. Inferior mesenteric artery: Unremarkable. Renal arteries: Moderate calcific plaque at the origin of both renal arteries. Limited evaluation stenosis. Possible mild stenosis of the left renal artery on the coronal reformatted images. PELVIC ARTERIES: Right Common Iliac: Unremarkable. Right External Iliac: Unremarkable. Right Internal Iliac: Unremarkable. Left Common Iliac: Unremarkable. Left External Iliac: Unremarkable. Left Internal Iliac: Unremarkable. RIGHT LOWER EXTREMITY ARTERIES: Right Common Femoral: Unremarkable. Right Superficial Femoral: Proximal SFA is normal. Right Profunda Femoris: Proximal profunda is normal LEFT LOWER EXTREMITY ARTERIES: Left Common Femoral: Unremarkable. Left Superficial Femoral: Proximal SFA is normal Left Profunda Femoris: Proximal profunda is normal NON-ANGIOGRAPHIC ASPECT OF THE EXAM: LOWER THORAX: Unremarkable. 19 millimeter air cyst left lower lobe LIVER: Unremarkable. No gross lesion or ductal dilatation. GALLBLADDER AND BILE DUCTS: Unremarkable. PANCREAS: Unremarkable. No gross lesion or ductal dilatation. SPLEEN: Unremarkable. ADRENALS: Unremarkable. No mass. KIDNEYS AND URETERS: Unremarkable. No hydronephrosis. No solid mass. STOMACH AND BOWEL: Inflammatory changes right lower abdomen consistent with appendicitis and as described in the previous CT scan earlier today. APPENDIX: Acute appendicitis PERITONEUM: LYMPH NODES: Unremarkable. No enlarged lymph nodes. BLADDER: Unremarkable. REPRODUCTIVE: Unremarkable. BONES: No acute fracture. OTHER FINDINGS: None. IMPRESSION: Essentially unremarkable CT angiogram without evidence dissection, stenosis or aneurysm. There is no evidence of mesenteric ischemia.
--- NOTE | 2017-03-03 10:52 | CP.PCM.PN ---
Subjective - Date & Time of Evaluation Date of Evaluation: 03/03/17 Time of Evaluation: 09:00 - Subjective Subjective: General Surgery Dr. Cain Pt @echo this AM when rounding. will return to interview the pt. Objective - Vital Signs/Intake and Output Vital Signs (last 24 hours): Temp Pulse Resp BP Pulse Ox 99.4 F 104 H 18 108/61 96 03/03/17 07:00 03/03/17 07:00 03/03/17 07:00 03/03/17 07:00 03/03/17 07:00 Intake and Output: 03/03/17 03/03/17 06:59 18:59 Intake Total 800 Balance 800 - Medications Medications: Current Medications Heparin Sodium (Porcine) (Heparin) 5,000 units SC Q8 [facility] Last Admin: 03/03/17 07:18 Dose: Not Given Hydralazine HCl (Apresoline) 10 mg IVP Q6H PRN PRN Reason: Systolic Blood Pressure Sodium Chloride (Sodium Chloride 0.9%) 1,000 mls @ 100 mls/hr IV .Q10H [facility] Last Admin: 03/03/17 10:13 Dose: Not Given Metronidazole (Flagyl) 100 mls @ 100 mls/hr IVPB Q8 [facility] Last Admin: 03/03/17 06:27 Dose: 100 mls/hr Piperacillin Sod/Tazobactam (Sod 3.375 gm/ Sodium Chloride) 100 mls @ 200 mls/ hr IVPB Q6H [facility] Last Admin: 03/03/17 08:12 Dose: 200 mls/hr Potassium Chloride (Potassium Chloride 20 Meq/100 Ml) 100 mls @ 50 mls/hr IVPB ONCE ONE Stop: 03/03/17 12:15 Last Admin: 03/03/17 10:37 Dose: 50 mls/hr Lorazepam (Ativan) 0.5 mg IVP ONCE PRN PRN Reason: Anxiety Ondansetron HCl (Zofran Inj) 4 mg IVP Q6H PRN PRN Reason: Nausea/Vomiting Pantoprazole Sodium (Protonix Inj) 40 mg IVP DAILY [facility] Last Admin: 03/03/17 10:12 Dose: 40 mg - Labs Labs: 03/03/17 07:10 03/03/17 07:10 Laboratory Tests 03/03/17 07:10 Calcium 7.1 L Phosphorus 3.1 Magnesium 1.8 Total Bilirubin 1.4 H AST 24 ALT 17 Alkaline Phosphatase 56 Total Protein 6.5 Albumin 3.5 Microbiology 03/02/17 19:00 Urine,Clean Catch Urine Culture - Preliminary No growth. Assessment and Plan - Assessment and Plan (Free Text) Assessment: 81 y/o F w/ abd pain found to have appendicitis on CT - CTA: no signs chronic mesenteric ischemia. acute appendicitis - Echo done today, calculated EF 77% - await final read - OR today for Lap appy - cont NPO, IVF, Abx - pain management - anti-emetic Pt discussed w/ Dr. Ant Garcia DO PGY1
[2017-03-03] MEDS ORDERED: HYDROmorphone 0.5 mg/0.5 ml ISec IVP PRN (11:09)
--- NOTE | 2017-03-03 11:13 | CP.PCM.PN ---
<Kory Bailey - Last Filed: 03/03/17 14:56> Subjective - Date & Time of Evaluation Date of Evaluation: 03/03/17 Time of Evaluation: 08:00 - Subjective Subjective: PGY-1 Medicine Progress Note for Dr. Keith Patient seen and examined at bedside. No acute event overnight. Patient resting in bed comfortably. Patient is still complaining of l flank and LLQ pain. Patient stated that the pain has been coming back intermittently. Dilaudid was ordered for pain control and has helped her. Patient is NPO. Patient went for CT angiography today. Denied fever/chills, cp, sob, palpitations, n/v/d. Objective - Vital Signs/Intake and Output Vital Signs (last 24 hours): Temp Pulse Resp BP Pulse Ox 99.4 F 104 H 18 108/61 96 03/03/17 07:00 03/03/17 07:00 03/03/17 07:00 03/03/17 07:00 03/03/17 07:00 Intake and Output: 03/03/17 03/03/17 06:59 18:59 Intake Total 800 Balance 800 - Medications Medications: Current Medications Heparin Sodium (Porcine) (Heparin) 5,000 units SC Q8 [facility] Last Admin: 03/03/17 07:18 Dose: Not Given Hydralazine HCl (Apresoline) 10 mg IVP Q6H PRN PRN Reason: Systolic Blood Pressure Hydromorphone HCl (Dilaudid) 0.5 mg IVP Q4H PRN PRN Reason: Pain, moderate (4-7) Sodium Chloride (Sodium Chloride 0.9%) 1,000 mls @ 100 mls/hr IV .Q10H [facility] Last Admin: 03/03/17 10:13 Dose: Not Given Metronidazole (Flagyl) 100 mls @ 100 mls/hr IVPB Q8 [facility] Last Admin: 03/03/17 06:27 Dose: 100 mls/hr Piperacillin Sod/Tazobactam (Sod 3.375 gm/ Sodium Chloride) 100 mls @ 200 mls/ hr IVPB Q6H [facility] Last Admin: 03/03/17 08:12 Dose: 200 mls/hr Potassium Chloride (Potassium Chloride 20 Meq/100 Ml) 100 mls @ 50 mls/hr IVPB ONCE ONE Stop: 03/03/17 12:15 Last Admin: 03/03/17 10:37 Dose: 50 mls/hr Lorazepam (Ativan) 0.5 mg IVP ONCE PRN PRN Reason: Anxiety Ondansetron HCl (Zofran Inj) 4 mg IVP Q6H PRN PRN Reason: Nausea/Vomiting Pantoprazole Sodium (Protonix Inj) 40 mg IVP DAILY [facility] Last Admin: 03/03/17 10:12 Dose: 40 mg - Labs Labs: 03/03/17 07:10 03/03/17 07:10 PT 12.2 SECONDS (9.7-12.2) 03/02/17 22:44 INR 1.1 03/02/17 22:44 APTT 30 SECONDS (21-34) 03/02/17 22:44 - Constitutional Appears: No Acute Distress - Head Exam Head Exam: ATRAUMATIC, NORMOCEPHALIC - Eye Exam Eye Exam: EOMI, Normal appearance Pupil Exam: PERRL - ENT Exam ENT Exam: Mucous Membranes Moist - Neck Exam Neck Exam: Normal Inspection - Respiratory Exam Respiratory Exam: Clear to Ausculation Bilateral, NORMAL BREATHING PATTERN - Cardiovascular Exam Cardiovascular Exam: REGULAR RHYTHM, +S1, +S2 - GI/Abdominal Exam GI & Abdominal Exam: Soft, Tenderness, Normal Bowel Sounds. absent: Distended, Firm, Guarding, Rigid, Rebound - Extremities Exam Extremities Exam: Normal Capillary Refill - Back Exam Back Exam: absent: CVA tenderness (L), CVA tenderness (R) - Neurological Exam Neurological Exam: Alert, Awake, CN II-XII Intact, Oriented x3 - Psychiatric Exam Psychiatric exam: Normal Affect, Normal Mood - Skin Skin Exam: Dry, Intact, Normal Color, Warm Assessment and Plan - Assessment and Plan (Free Text) Plan: Diffuse Lower Abdominal Pain: NPO Afebrile, nontachycardic EKG-NSR, no ST changes (please see full report) CXR - no active disease Abd/Pelvis CT w/o contrast - enlarged appendix, 14 mm, periappendiceal inflammatory changes; no periappendiceal abscess; diverticulosis of sigmoid colon, no diverticulitis; no bowel obstruction; acute, uncomplicated appendicitis (please see full report) Surgery, Dr. Cain, consulted. Help appreciated. GI, Dr. Antonio, consulted. Help appreciated. Cardiology, Dr. Olson, consulted for cardiac clearance. Help appreciated. Abd/Pelvis CT angiography unremarkable (see full report) Echocardiogram concentric LVH, LVEF 77% Zosyn 3.375 gm IV q6h Flagyl 500 mg IVPB Q8H Dilaudid 0.5 mg IVP Q4H PRN NS 100 cc/hr Renal US HTN: Hydralazine 10 mg IV q6h prn for SBP >160 Home medications of metoprolol, losartan, amlodipine held since pt is NPO Renal US Hyperlipidemia: Home medication of rosuvostatin held since pt is NPO Anxiety/Depression: Ativan 0.1 mg IV once prn Home medication of cymbalta held Prophylactic Measures: GI: Protonix 40 mg IV qd DVT: SCDs, Heparin 5000 units sc q8h <Carrie Keith V - Last Filed: 03/03/17 17:14> Objective - Vital Signs/Intake and Output Vital Signs (last 24 hours): Temp Pulse Resp BP Pulse Ox 99.4 F 104 H 18 108/61 96 03/03/17 07:00 03/03/17 07:00 03/03/17 07:00 03/03/17 07:00 03/03/17 07:00 Intake and Output: 03/03/17 03/03/17 06:59 18:59 Intake Total 800 Balance 800 - Medications Medications: Current Medications Hydralazine HCl (Apresoline) 10 mg IVP Q6H PRN PRN Reason: Systolic Blood Pressure Hydromorphone HCl (Dilaudid) 0.5 mg IVP Q4H PRN PRN Reason: Pain, moderate (4-7) Last Admin: 03/03/17 11:18 Dose: 0.5 mg Sodium Chloride (Sodium Chloride 0.9%) 1,000 mls @ 100 mls/hr IV .Q10H [facility] Last Admin: 03/03/17 10:13 Dose: Not Given Metronidazole (Flagyl) 100 mls @ 100 mls/hr IVPB Q8 [facility] Last Admin: 03/03/17 14:03 Dose: 100 mls/hr Piperacillin Sod/Tazobactam (Sod 3.375 gm/ Sodium Chloride) 100 mls @ 200 mls/ hr IVPB Q6H [facility] Last Admin: 03/03/17 14:00 Dose: 200 mls/hr Lorazepam (Ativan) 0.5 mg IVP ONCE PRN PRN Reason: Anxiety Ondansetron HCl (Zofran Inj) 4 mg IVP Q6H PRN PRN Reason: Nausea/Vomiting Pantoprazole Sodium (Protonix Inj) 40 mg IVP DAILY [facility] Last Admin: 03/03/17 10:12 Dose: 40 mg - Labs Labs: 03/03/17 07:10 03/03/17 07:10 PT 12.2 SECONDS (9.7-12.2) 03/02/17 22:44 INR 1.1 03/02/17 22:44 APTT 30 SECONDS (21-34) 03/02/17 22:44 Attending/Attestation - Attestation I have personally seen and examined this patient.: Yes I have fully participated in the care of the patient.: Yes I have reviewed all pertinent clinical information, including history, physical exam and plan: Yes Notes (Text): Patient seen, examined, and case discussed with day-time resident. Patient reports right lower abdominal quadrant, diffuse, uncomfortable at bedside. Discussed with surgery resident, regarding for acute appendicitis, given patient has increased leukocytosis with associated bands, and right lower abdominal pain tender to palpation. Patient completed Angiography (unremarkable CT angiogram without evidence dissection, stenosis, or aneurysm) to rule out chronic mesenteric ischemia. Patient seen and evaluated by cardiology. Help appreciated. Patient taken to the OR this afternoon for lap appendicitis. Awaiting to re- eval post-OR. Discussed with patient's PMD, Dr Raza regarding patient requiring surgery in light of change in white count, abdominal exam, and surgery decision to take her to the OR. Will continue with IV antibiotics. Assessment/Plan Abdominal Pain * Abd/Pelvis CT w/o contrast - enlarged appendix, 14 mm, periappendiceal inflammatory changes; no periappendiceal abscess; diverticulosis of sigmoid colon, no diverticulitis; no bowel obstruction; acute, uncomplicated appendicitis (please see full report) * Angiography (03/03/17): essentially unremakrable Ct angiogram without evidence dissection, stenosis, or aneurysm. No evidence of mesenteric ischemia * General surgery (Dr. Cain) on board-->taken to the OR today * Gastroenterology (Dr. Antonio) on board-->patient's GI doctor; had a recent colonoscopy with him; does not know results. * Cardiology (Dr. Olson) on board-->requested by patient's primary doctor, Luz Marina Vallejo for possible cardiac clearance * Abx: Zosyn 3.375g IV Q 6hours and Flagyl 500mg IV Q 8 hours * Echocardiogram (03/02/17): borderline concentric left ventricular hypertrophy, left atrium is borderline dilated. left ventricular diastolic function is normal ; patient seen and evaluated by cardiology-->help appreciated * NS 100 cc/hr Frequency * Abnormal UA * Urine culture (03/02): no growth * Patient is currently on Zosyn which should help cover for UTI Leukocytosis * possible appendicitis based on CT scan-->went to OR today for appendicitis * Increased leukocytosis and bands * Urine culture (03/02/17): no growth * pending results of blood cultures HTN: * Hydralazine 10 mg IV q6h prn for SBP >160 * Held Home medications of metoprolol, losartan, amlodipine patient is NPO Hyperlipidemia: * Home medication of rosuvostatin held since pt is NPO Anxiety/Depression: * Ativan 0.5 mg IV once prn * Home medication of cymbalta and Ativan held seocndary to NPO Prophylactic Measures: * GI: Protonix 40 mg IV qd * DVT: SCDs, held Heparin 5000 units sc q8h 03/03/17 17:13
--- NOTE | 2017-03-03 12:48 | CARD ---
APPROVED REPORT EXAM: Two-dimensional and M-mode echocardiogram with Doppler and color Doppler. Other Information Quality : AverageRhythm : NSR INDICATION CVA/TIA Dizziness and Vertigo Syncope arrythmia RISK FACTORS Hyperlipidemia M-Mode DIMENSIONS RVDd1.03 (2.1-3.2cm)Left Atrium (MM)4.06 (2.5-4.0cm) IVSd1.14 (0.7-1.1cm)Aortic Root2.73 (2.2-3.7cm) LVDd4.79 (4.0-5.6cm)Aortic Cusp Exc.1.81 (1.5-2.0cm) PWd1.00 (0.7-1.1cm)FS (%) 45 % LVDs2.62 (2.0-3.8cm)LVEF (%)77 (>50%) Mitral Valve MV E Vessewfy51.3cm/sMV A Vuqteviq473.5cm/sE/A ratio0.5 TDI E/Lateral E'0.0E/Medial E'0.0 Tricuspid Valve TR Peak Etfwaets435qm/sTR Peak Gr.[id number] LEFT VENTRICLE The left ventricle is normal size. There is borderline concentric left ventricular hypertrophy. The left ventricular function is normal. The left ventricular ejection fraction is within the normal range. There is normal LV segmental wall motion. The left ventricular diastolic function is normal. Transmitral Doppler flow pattern is Grade I-abnormal relaxation pattern. No left ventricle thrombus noted on this study. There is no ventricular septal defect visualized. There is no left ventricular aneurysm. There is no mass noted in the left ventricle. RIGHT VENTRICLE The right ventricle is normal size. There is normal right ventricular wall thickness. The right ventricular systolic function is normal. ATRIA The left atrium is borderline dilated. The right atrium size is normal. The interatrial septum is intact with no evidence for an atrial septal defect. AORTIC VALVE The aortic valve is normal in structure. No aortic regurgitation is present. There is no aortic valvular stenosis. There is no aortic valvular vegetation. MITRAL VALVE The mitral valve is normal in structure. There is no evidence of mitral valve prolapse. There is no mitral valve stenosis. There is no mitral valve regurgitation noted. TRICUSPID VALVE The tricuspid valve is normal in structure. There is no tricuspid valve regurgitation noted. PULMONIC VALVE The pulmonary valve is normal in structure. There is no pulmonic valvular regurgitation. GREAT VESSELS The aortic root displays mild sclerocalcific changes of the aortic root. The ascending aorta is normal in size. The IVC is normal in size and collapses >50% with inspiration. PERICARDIAL EFFUSION There is no pericardial effusion. <Conclusion> There is borderline concentric left ventricular hypertrophy. The left atrium is borderline dilated. The left ventricular diastolic function is normal. Transmitral Doppler flow pattern is Grade I-abnormal relaxation pattern.
--- NOTE | 2017-03-03 14:01 | CP.PCM.PN ---
Subjective - Date & Time of Evaluation Date of Evaluation: 03/03/17 Time of Evaluation: 14:00 - Subjective Subjective: Echo NL LV contractility, no , CT angio, unremarkable , AP Objective - Vital Signs/Intake and Output Vital Signs (last 24 hours): Temp Pulse Resp BP Pulse Ox 99.4 F 104 H 18 108/61 96 03/03/17 07:00 03/03/17 07:00 03/03/17 07:00 03/03/17 07:00 03/03/17 07:00 Intake and Output: 03/03/17 03/03/17 06:59 18:59 Intake Total 800 Balance 800 - Medications Medications: Current Medications Hydralazine HCl (Apresoline) 10 mg IVP Q6H PRN PRN Reason: Systolic Blood Pressure Hydromorphone HCl (Dilaudid) 0.5 mg IVP Q4H PRN PRN Reason: Pain, moderate (4-7) Last Admin: 03/03/17 11:18 Dose: 0.5 mg Sodium Chloride (Sodium Chloride 0.9%) 1,000 mls @ 100 mls/hr IV .Q10H [facility] Last Admin: 03/03/17 10:13 Dose: Not Given Metronidazole (Flagyl) 100 mls @ 100 mls/hr IVPB Q8 [facility] Last Admin: 03/03/17 06:27 Dose: 100 mls/hr Piperacillin Sod/Tazobactam (Sod 3.375 gm/ Sodium Chloride) 100 mls @ 200 mls/ hr IVPB Q6H [facility] Last Admin: 03/03/17 08:12 Dose: 200 mls/hr Lorazepam (Ativan) 0.5 mg IVP ONCE PRN PRN Reason: Anxiety Ondansetron HCl (Zofran Inj) 4 mg IVP Q6H PRN PRN Reason: Nausea/Vomiting Pantoprazole Sodium (Protonix Inj) 40 mg IVP DAILY [facility] Last Admin: 03/03/17 10:12 Dose: 40 mg - Labs Labs: 03/03/17 07:10 03/03/17 07:10 PT 12.2 SECONDS (9.7-12.2) 03/02/17 22:44 INR 1.1 03/02/17 22:44 APTT 30 SECONDS (21-34) 03/02/17 22:44 - Constitutional Appears: Non-toxic - Head Exam Head Exam: ATRAUMATIC - Eye Exam Eye Exam: EOMI - ENT Exam ENT Exam: Mucous Membranes Moist - Neck Exam Neck Exam: absent: Lymphadenopathy, Thyromegaly - Respiratory Exam Respiratory Exam: Clear to Ausculation Bilateral. absent: Rales - GI/Abdominal Exam GI & Abdominal Exam: Normal Bowel Sounds. absent: Organomegaly - Rectal Exam Rectal Exam: Deferred - Extremities Exam Extremities Exam: Normal Capillary Refill. absent: Calf Tenderness - Neurological Exam Neurological Exam: Alert, Oriented x3 - Psychiatric Exam Psychiatric exam: Normal Mood - Skin Skin Exam: Dry Assessment and Plan (1) Abdominal pain Status: Acute (2) Appendicitis, unqualified Assessment & Plan: acceptable risk for cardiac complication from an urgent surgery, did well Status: Acute (3) Pre-procedural cardiovascular examination Status: Acute
[2017-03-03] MEDS ORDERED: Propofol 10 mg/ml Inj (20 ML) ONE (16:16)
[2017-03-03] MEDS ORDERED: Rocuronium 10 mg/ml (5 ml) ONE (16:31)
[2017-03-03] MEDS ORDERED: Midazolam 2 MG/2 ML VIAL ONE (16:32)
[2017-03-03] MEDS ORDERED: Neostigmine Methylsulfate 3mg/3ml Syringe IV ONE (16:51)
--- NOTE | 2017-03-03 17:33 | PCM.SURG1 ---
Surgeon's Initial Post Op Note - Surgeon's Notes Surgeon: Dr. Cain Technician Support Engineer: Dr. Garcia PGY1, Herman Wong [id number] Type of Anesthesia: General Endo Pre-Operative Diagnosis: appendicitis Operative Findings: see dictation Post-Operative Diagnosis: same Operation Performed: laparoscopic appendectomy Specimen/Specimens Removed: appendix Estimated Blood Loss: EBL {In ML}: 10 Blood Products Given: N/A Drains Used: No Drains Post-Op Condition: Good Date of Surgery/Procedure: 03/03/17 Time of Surgery/Procedure: 16:30
[2017-03-03 17:43] VITALS: RESP 20
[2017-03-03] MEDS ORDERED: Lactated Ringer's 1,000 ML IV ONE (18:00)
--- NOTE | 2017-03-03 19:16 | OP ---
PROCEDURE DATE: 03/03/2017 SURGEON: Dr. Cain DIRECTOR [employer] AGENCY: Dr. Garcia ANESTHESIA: General. ANESTHESIOLOGIST: Dr. Martinez PREOPERATIVE DIAGNOSIS: Appendicitis. POSTOPERATIVE DIAGNOSIS: Appendicitis. PROCEDURE: Laparoscopic appendectomy. DESCRIPTION OF OPERATION: With the patient in the supine position under adequate general anesthesia, the abdomen was prepped and draped in the usual sterile manner. Veress needle puncture was performed at the umbilicus with insufflation to 15 cm water pressure of CO2 and a 5 mm laparoscopic trocar was inserted via an infraumbilical incision. Under direct vision, 5 and 12 mm trocars were inserted in the left lower quadrant. The cecum was identified and retraction of the cecum medially revealed an inflamed, catarrhal appendix adherent to the pelvic side wall lateral to the cecum. The appendix was gently peeled away from the pelvic sidewall and completely elevated and noted to be markedly thickened with inflammatory changes of the mesoappendix as well. A window was made in the mesoappendix and the appendix was divided close to the cecum using an Endo-NOAH stapler. The mesoappendix was then divided with Hemoclips and an additional pass of the Endo NOAH stapler. The appendix was placed in a specimen retrieval bag and removed via the 12 mm port site. The right lower quadrant was irrigated and suctioned. The iliac fossa area was inspected for hemostasis and the pneumoperitoneum was released and the trocars were removed. The 12 mm port site was closed with a [id number] fascial suture of 0 Vicryl. All incisions were closed with 4-0 Monocryl subcuticular sutures and Steri-Strips. Dry sterile dressings were applied. The patient tolerated the procedure well and transferred to recovery room in stable condition. Estimated blood loss for the procedure was 10 mL. Bello Cain MD cc: 58 TT: 03/03/2017 19:15:40 sn MTDD
[2017-03-04] MEDS: Piperacillin/Tazobact 3.375 GM in Sodium Chloride 100 ML IVPB SCH ×4 (02:58→19:54)
[2017-03-04] MEDS: metroNIDAZOLE IV 500 mg/100 ml 100 ML IVPB SCH ×3 (05:59→21:58)
[2017-03-04] MEDS: Sodium Chloride 0.9% 1,000 ML IV SCH ×2 (06:01→14:58)
[2017-03-04 08:06] LABS: EOS % 0.1 % (0.0-4.0); MONO # 0.6 K/uL (0.0-0.8); RED CELL DISTRIBUTION WIDTH 14.4 % (11.5-14.5)
[2017-03-04 08:11] LABS: BASO % 0.1 % (0.0-2.0); HEMATOCRIT 33.7 % (34.0-47.0); LYMPH # 0.9 K/uL (1.0-4.3); LYMPH % 8.1 % (20.0-40.0); MEAN CELL VOLUME 85.4 fL (81.0-99.0); MEAN CORPUSCULAR HEMOGLOBIN 28.4 pg (27.0-31.0); MEAN CORPUSCULAR HGB CONC 33.3 g/dL (33.0-37.0); MEAN PLATELET VOLUME 12.2 fL (7.2-11.7); MONO % 6.1 % (0.0-10.0); PLATELET COUNT 113 K/uL (130-400); WHITE BLOOD COUNT 10.6 K/uL (4.8-10.8)
[2017-03-04 08:35] LABS: CHLORIDE 106 mmol/L (98-107); POTASSIUM 3.6 mmol/L (3.6-5.2); SODIUM 139 mmol/L (132-148)
[2017-03-04 08:38] LABS: GFR AFRICAN-AMERICAN > 60
[2017-03-04 08:39] LABS: BLOOD UREA NITROGEN 11 mg/dL (7-17); CALCIUM 6.8 mg/dl (8.6-10.4); CARBON DIOXIDE 21 mmol/L (22-30); GLUCOSE,RANDOM 114 mg/dL (65-105)
[2017-03-04 08:52] LABS: NEUTROPHIL 66 % (50-75); REACTIVE LYMPHOCYTES 1 % (0-0); TOTAL CELLS COUNTED 100
[2017-03-04 08:54] LABS: LARGE PLATELETS PRESENT
--- NOTE | 2017-03-04 09:17 | CP.PCM.PN ---
<Kory Bailey - Last Filed: 03/04/17 13:41> Subjective - Date & Time of Evaluation Date of Evaluation: 03/04/17 Time of Evaluation: 07:10 - Subjective Subjective: PGY-1 Medicine Progress Note for Dr. Keith Patient seen and examined at bedside. No acute event overnight. Patient is POD # 1 s/p appendectomy. She is resting in bed comfortably. Patient is still complaining of abdominal pain. She was requestin er home psych meds ao they were restarted. Patient debating on going home or DEBRA upon discharge. No BM or flatus after surgery yet. Denied fever/chills, cp, sob, palpitations, n/v/d. Objective - Vital Signs/Intake and Output Vital Signs (last 24 hours): Temp Pulse Resp BP Pulse Ox 98.5 F 100 H 20 132/63 96 03/04/17 08:00 03/04/17 08:00 03/04/17 08:00 03/04/17 08:00 03/04/17 08:00 Intake and Output: 03/04/17 03/04/17 06:59 18:59 Intake Total 850 Balance 850 - Medications Medications: Current Medications Home Med (Duloxetine) 60 mg PO DAILY [facility] Home Med (Crestor) 10 mg PO HS [facility] Hydralazine HCl (Apresoline) 10 mg IVP Q6H PRN PRN Reason: Systolic Blood Pressure Sodium Chloride (Sodium Chloride 0.9%) 1,000 mls @ 100 mls/hr IV .Q10H [facility] Last Admin: 03/04/17 06:01 Dose: 100 mls/hr Metronidazole (Flagyl) 100 mls @ 100 mls/hr IVPB Q8 [facility] Last Admin: 03/04/17 05:59 Dose: 100 mls/hr Piperacillin Sod/Tazobactam (Sod 3.375 gm/ Sodium Chloride) 100 mls @ 200 mls/ hr IVPB Q6H [facility] Last Admin: 03/04/17 08:29 Dose: 200 mls/hr Lorazepam (Ativan) 0.5 mg IVP ONCE PRN PRN Reason: Anxiety Morphine Sulfate (Morphine) 2 mg IVP Q4 PRN PRN Reason: Pain, moderate (4-7) Last Admin: 03/04/17 08:30 Dose: 2 mg Ondansetron HCl (Zofran Inj) 4 mg IVP Q6H PRN PRN Reason: Nausea/Vomiting Pantoprazole Sodium (Protonix Inj) 40 mg IVP DAILY [facility] Last Admin: 03/03/17 10:12 Dose: 40 mg - Labs Labs: 03/04/17 07:55 03/04/17 07:55 PT 12.2 SECONDS (9.7-12.2) 03/02/17 22:44 INR 1.1 03/02/17 22:44 APTT 30 SECONDS (21-34) 03/02/17 22:44 - Constitutional Appears: No Acute Distress - Head Exam Head Exam: ATRAUMATIC, NORMOCEPHALIC - Eye Exam Eye Exam: EOMI, Normal appearance Pupil Exam: PERRL - ENT Exam ENT Exam: Mucous Membranes Moist - Neck Exam Neck Exam: Normal Inspection - Respiratory Exam Respiratory Exam: Clear to Ausculation Bilateral, NORMAL BREATHING PATTERN - GI/Abdominal Exam GI & Abdominal Exam: Soft, Tenderness, Normal Bowel Sounds. absent: Distended, Firm, Guarding, Rigid, Rebound Additional comments: 3 small laparoscopic incision clean/dry/intact without drainage - Extremities Exam Extremities Exam: Normal Capillary Refill. absent: Calf Tenderness - Back Exam Back Exam: absent: CVA tenderness (L), CVA tenderness (R) - Neurological Exam Neurological Exam: Alert, Awake, CN II-XII Intact, Oriented x3 - Psychiatric Exam Psychiatric exam: Normal Affect, Normal Mood - Skin Skin Exam: Dry, Intact, Normal Color, Warm Assessment and Plan - Assessment and Plan (Free Text) Plan: 1. Diffuse Lower Abdominal Pain POD#1 s/p appendectomy Afebrile, nontachycardic EKG-NSR, no ST changes (please see full report) CXR - no active disease Abd/Pelvis CT w/o contrast - enlarged appendix, 14 mm, periappendiceal inflammatory changes; no periappendiceal abscess; diverticulosis of sigmoid colon, no diverticulitis; no bowel obstruction; acute, uncomplicated appendicitis (please see full report) Surgery, Dr. Cain, consulted. Help appreciated. GI, Dr. Antonio, consulted. Help appreciated. Cardiology, Dr. Olson, consulted for cardiac clearance. Help appreciated. Abd/Pelvis CT angiography unremarkable (see full report) Echocardiogram concentric LVH, LVEF 77% Zosyn 3.375 gm IV q6h Flagyl 500 mg IVPB Q8H Dilaudid 0.5 mg IVP Q4H PRN NS 100 cc/hr Renal US 2. HTN Hydralazine 10 mg IV q6h prn for SBP >160 Home medications of metoprolol, losartan, amlodipine held since pt is NPO Renal US 3. Hyperlipidemia Home medication of rosuvostatin held since pt is NPO 4. Anxiety/Depression Ativan 0.1 mg IV once prn Home medication of cymbalta held 5. Prophylactic Measures GI: Protonix 40 mg IV daily DVT: SCDs, Heparin 5000 units sc q8h <Carrie Keith V - Last Filed: 03/04/17 21:49> Objective - Vital Signs/Intake and Output Vital Signs (last 24 hours): Temp Pulse Resp BP Pulse Ox 99.3 F 109 H 20 139/69 93 L 03/04/17 15:00 03/04/17 17:58 03/04/17 15:00 03/04/17 15:00 03/04/17 15:00 Intake and Output: 03/04/17 03/05/17 18:59 06:59 Intake Total 1750 Balance 1750 - Medications Medications: Current Medications Duloxetine HCl (Cymbalta) 60 mg PO DAILY [facility] Last Admin: 03/04/17 09:42 Dose: 60 mg Hydralazine HCl (Apresoline) 10 mg IVP Q6H PRN PRN Reason: Systolic Blood Pressure Sodium Chloride (Sodium Chloride 0.9%) 1,000 mls @ 100 mls/hr IV .Q10H [facility] Last Admin: 03/04/17 14:58 Dose: Not Given Metronidazole (Flagyl) 100 mls @ 100 mls/hr IVPB Q8 [facility] Last Admin: 03/04/17 14:11 Dose: 100 mls/hr Piperacillin Sod/Tazobactam (Sod 3.375 gm/ Sodium Chloride) 100 mls @ 200 mls/ hr IVPB Q6H [facility] Last Admin: 03/04/17 19:54 Dose: 200 mls/hr Lorazepam (Ativan) 0.5 mg IVP ONCE PRN PRN Reason: Anxiety Morphine Sulfate (Morphine) 2 mg IVP Q4 PRN PRN Reason: Pain, moderate (4-7) Last Admin: 03/04/17 14:13 Dose: 2 mg Ondansetron HCl (Zofran Inj) 4 mg IVP Q6H PRN PRN Reason: Nausea/Vomiting Pantoprazole Sodium (Protonix Inj) 40 mg IVP DAILY [facility] Last Admin: 03/04/17 09:43 Dose: 40 mg Rosuvastatin Calcium (Crestor) 10 mg PO HS [facility] - Labs Labs: 03/04/17 07:55 03/04/17 07:55 PT 12.2 SECONDS (9.7-12.2) 03/02/17 22:44 INR 1.1 03/02/17 22:44 APTT 30 SECONDS (21-34) 03/02/17 22:44 Attending/Attestation - Attestation I have personally seen and examined this patient.: Yes I have fully participated in the care of the patient.: Yes I have reviewed all pertinent clinical information, including history, physical exam and plan: Yes Notes (Text): Patient seen, examined, and case discussed with day-time resident. Patient seen this morning. Reporting abdominal located to surgical site. Patient is POD 1 from the OR for appendicitis. Patient re-evaluated in the evening. Patient reports she has had flatus in the evening. Discussed with patient's daughter at bedside. Discussed with patient's PMD regarding patient status this morning during rounds , improving white count, doing well post-surgery, monitor for flatus/bowel movement; patient is picky eater, follow-up lunch/dinner Patient does not want subacute rehab, would like to go home. Will continue IV abx given persistent bandemia in light of improved white count , afebrile. Per surgery note, continue IV antibiotics for gangrenous appendix with impending rupture Disposition: follow-up with surgery, monitor for flatus/bowel movement, and monitor bandemia on IV abx to cover appendicitis Assessment/Plan Abdominal Pain * Abd/Pelvis CT w/o contrast - enlarged appendix, 14 mm, periappendiceal inflammatory changes; no periappendiceal abscess; diverticulosis of sigmoid colon, no diverticulitis; no bowel obstruction; acute, uncomplicated appendicitis (please see full report) * Angiography (03/03/17): essentially unremakrable Ct angiogram without evidence dissection, stenosis, or aneurysm. No evidence of mesenteric ischemia * General surgery (Dr. Cain) on board--> POD 1 for gangrenous appendicitis; continue with IV abxs * Gastroenterology (Dr. Antonio) on board-->patient's GI doctor; had a recent colonoscopy with him; does not know results. * Cardiology (Dr. Olson) on board-->requested by patient's primary doctor, Luz Marina Vallejo for possible cardiac clearance * Abx: Zosyn 3.375g IV Q 6hours and Flagyl 500mg IV Q 8 hours * Echocardiogram (03/02/17): borderline concentric left ventricular hypertrophy, left atrium is borderline dilated. left ventricular diastolic function is normal ; patient seen and evaluated by cardiology-->help appreciated * NS 100 cc/hr Frequency * Abnormal UA * Urine culture (03/02): no growth * Denies today Leukocytosis * possible appendicitis based on CT scan-->POD 1 for lap appendicitis * improved leukocytosis, persistent bands * Urine culture (03/02/17): no growth * Blood cultures (03/02/17): no growth for 24 hours X2 HTN: * Hydralazine 10 mg IV q6h prn for SBP >160 * Held Home medications of metoprolol, losartan, amlodipine patient is NPO Hyperlipidemia: * Home medication of rosuvostatin held since pt is NPO Anxiety/Depression: * Ativan 0.5 mg IV once prn * Home medication resumed cymbalta and Ativan Prophylactic Measures: * GI: Protonix 40 mg IV qd * DVT: SCDs, held Heparin 5000 units sc q8h * Diet resumed today
--- NOTE | 2017-03-04 11:16 | CP.PCM.PN ---
Subjective - Date & Time of Evaluation Date of Evaluation: 03/04/17 Time of Evaluation: 07:00 - Subjective Subjective: General Surgery Dr. Cain Pt S&E @bedside. Pt had lap appendectomy yesterday. pt tolerated the procedure well w/ no complications. NAEO. c/o pain in RLQ. no F/C, N/V. pt did not eat post procedure. (-) Flatus/BM. Objective - Vital Signs/Intake and Output Vital Signs (last 24 hours): Temp Pulse Resp BP Pulse Ox 98.5 F 100 H 20 132/63 96 03/04/17 08:00 03/04/17 08:00 03/04/17 08:00 03/04/17 08:00 03/04/17 08:00 Intake and Output: 03/04/17 03/04/17 06:59 18:59 Intake Total 850 Balance 850 - Medications Medications: Current Medications Duloxetine HCl (Cymbalta) 60 mg PO DAILY [facility] Last Admin: 03/04/17 09:42 Dose: 60 mg Hydralazine HCl (Apresoline) 10 mg IVP Q6H PRN PRN Reason: Systolic Blood Pressure Sodium Chloride (Sodium Chloride 0.9%) 1,000 mls @ 100 mls/hr IV .Q10H [facility] Last Admin: 03/04/17 06:01 Dose: 100 mls/hr Metronidazole (Flagyl) 100 mls @ 100 mls/hr IVPB Q8 [facility] Last Admin: 03/04/17 05:59 Dose: 100 mls/hr Piperacillin Sod/Tazobactam (Sod 3.375 gm/ Sodium Chloride) 100 mls @ 200 mls/ hr IVPB Q6H [facility] Last Admin: 03/04/17 08:29 Dose: 200 mls/hr Lorazepam (Ativan) 0.5 mg IVP ONCE PRN PRN Reason: Anxiety Morphine Sulfate (Morphine) 2 mg IVP Q4 PRN PRN Reason: Pain, moderate (4-7) Last Admin: 03/04/17 08:30 Dose: 2 mg Ondansetron HCl (Zofran Inj) 4 mg IVP Q6H PRN PRN Reason: Nausea/Vomiting Pantoprazole Sodium (Protonix Inj) 40 mg IVP DAILY [facility] Last Admin: 03/04/17 09:43 Dose: 40 mg Rosuvastatin Calcium (Crestor) 10 mg PO HS [facility] - Labs Labs: 03/04/17 07:55 03/04/17 07:55 PT 12.2 SECONDS (9.7-12.2) 03/02/17 22:44 INR 1.1 03/02/17 22:44 APTT 30 SECONDS (21-34) 03/02/17 22:44 - Constitutional Appears: Non-toxic, No Acute Distress - Head Exam Head Exam: NORMAL INSPECTION - Eye Exam Eye Exam: Normal appearance - ENT Exam ENT Exam: Mucous Membranes Moist - Respiratory Exam Respiratory Exam: NORMAL BREATHING PATTERN. absent: Accessory Muscle Use, Respiratory Distress - GI/Abdominal Exam GI & Abdominal Exam: Soft, Tenderness (TTP RLQ). absent: Distended, Guarding, Rebound - Neurological Exam Neurological Exam: Alert, Awake, Oriented x3 - Psychiatric Exam Psychiatric exam: Normal Affect, Normal Mood - Skin Skin Exam: Dry, Intact, Normal Color, Warm Assessment and Plan - Assessment and Plan (Free Text) Assessment: 81 y/o F POD#14 s/p laparoscopic appendectomy - advance diet as tolerated - pain management - anti-emetic - monitor vitals Pt discussed w/ Dr. Ant Garcia DO PGY1
--- NOTE | 2017-03-04 12:36 | CP.PCM.PN ---
Subjective - Date & Time of Evaluation Date of Evaluation: 03/04/17 Time of Evaluation: 12:00 - Subjective Subjective: Had surgery, did well, for early ambulation, normal LV on echo. Follow-up as outpatient. Objective - Vital Signs/Intake and Output Vital Signs (last 24 hours): Temp Pulse Resp BP Pulse Ox 98.5 F 100 H 20 132/63 96 03/04/17 08:00 03/04/17 08:00 03/04/17 08:00 03/04/17 08:00 03/04/17 08:00 Intake and Output: 03/04/17 03/04/17 06:59 18:59 Intake Total 850 Balance 850 - Medications Medications: Current Medications Duloxetine HCl (Cymbalta) 60 mg PO DAILY [facility] Last Admin: 03/04/17 09:42 Dose: 60 mg Hydralazine HCl (Apresoline) 10 mg IVP Q6H PRN PRN Reason: Systolic Blood Pressure Sodium Chloride (Sodium Chloride 0.9%) 1,000 mls @ 100 mls/hr IV .Q10H [facility] Last Admin: 03/04/17 06:01 Dose: 100 mls/hr Metronidazole (Flagyl) 100 mls @ 100 mls/hr IVPB Q8 [facility] Last Admin: 03/04/17 05:59 Dose: 100 mls/hr Piperacillin Sod/Tazobactam (Sod 3.375 gm/ Sodium Chloride) 100 mls @ 200 mls/ hr IVPB Q6H [facility] Last Admin: 03/04/17 08:29 Dose: 200 mls/hr Lorazepam (Ativan) 0.5 mg IVP ONCE PRN PRN Reason: Anxiety Morphine Sulfate (Morphine) 2 mg IVP Q4 PRN PRN Reason: Pain, moderate (4-7) Last Admin: 03/04/17 08:30 Dose: 2 mg Ondansetron HCl (Zofran Inj) 4 mg IVP Q6H PRN PRN Reason: Nausea/Vomiting Pantoprazole Sodium (Protonix Inj) 40 mg IVP DAILY [facility] Last Admin: 03/04/17 09:43 Dose: 40 mg Rosuvastatin Calcium (Crestor) 10 mg PO HS [facility] - Labs Labs: 03/04/17 07:55 03/04/17 07:55 PT 12.2 SECONDS (9.7-12.2) 03/02/17 22:44 INR 1.1 03/02/17 22:44 APTT 30 SECONDS (21-34) 03/02/17 22:44 - Constitutional Appears: Non-toxic - Head Exam Head Exam: ATRAUMATIC - Eye Exam Eye Exam: EOMI - ENT Exam ENT Exam: Mucous Membranes Moist - Neck Exam Neck Exam: absent: Lymphadenopathy, Thyromegaly - Respiratory Exam Respiratory Exam: Clear to Ausculation Bilateral. absent: Rales - Cardiovascular Exam Cardiovascular Exam: REGULAR RHYTHM - GI/Abdominal Exam GI & Abdominal Exam: Hypoactive Bowel Sounds. absent: Organomegaly - Rectal Exam Rectal Exam: Deferred - Extremities Exam Extremities Exam: Normal Capillary Refill. absent: Calf Tenderness - Neurological Exam Neurological Exam: Alert, Oriented x3 - Psychiatric Exam Psychiatric exam: Normal Mood - Skin Skin Exam: Dry Assessment and Plan (1) Abdominal pain Status: Acute (2) Appendicitis, unqualified Status: Acute (3) Pre-procedural cardiovascular examination Status: Acute
--- NOTE | 2017-03-04 19:02 | CP.PCM.CON ---
History of Present Illness - History of Present Illness History of Present Illness: This is an 81 year old woman who was adimtted 03/02/2017 for abominal pain. Patient recently underwent colonosocpy on 02/17/2017 which shoed sigmoid diverticulosis. Patient presented to the ER on 01/30/2017 with a two month history of abdominal pain described as pressure in the left lower quadrant and right lower quadrant which worsened over the day prior to admission. The pain was accompanied by nausea and vomiting and loss of appetite. In the ER, a mildly elevated WBC count of 12,[address] abdominal [address] scan showed an enlarged appendix measuring 14 mm with periappendiceal inflammatory changes. Subsequently, a CT angio was performed, which confirmed the CT diagnosis of appendicitis and showed no evidence of mesenteric ischemia. Patient was brought to the OR for laparoscopic cholecystectomy on 03/03/2017, and an inflamed, catarrhal appendix was found. Review of Systems - Review of Systems All systems: reviewed and no additional remarkable complaints except - Constitutional Constitutional: absent: Fever - Cardiovascular Cardiovascular: absent: Chest Pain - Respiratory Respiratory: absent: Dyspnea - Gastrointestinal Gastrointestinal: Abdominal Pain, Nausea, Vomiting. absent: Constipation, Diarrhea, Hematochezia Past Patient History - Infectious Disease Hx of Infectious Diseases: None - Past Medical History & Family History Past Medical History?: Yes - Past Social History Smoking Status: Never Smoked - CARDIAC Hx Cardiac Disorders: Yes Hx Hypertension: Yes - PULMONARY Hx Respiratory Disorders: No - NEUROLOGICAL Hx Neurological Disorder: Yes Hx Syncope: Yes - HEENT Hx Cataracts: Yes - RENAL Hx Chronic Kidney Disease: No - ENDOCRINE/METABOLIC Hx Endocrine Disorders: No - HEMATOLOGICAL/ONCOLOGICAL Hx Blood Disorders: No - INTEGUMENTARY Hx Dermatological Problems: No - MUSCULOSKELETAL/RHEUMATOLOGICAL Hx Musculoskeletal Disorders: Yes Hx Falls: Yes - GASTROINTESTINAL Hx Gastrointestinal Disorders: No - GENITOURINARY/GYNECOLOGICAL Hx Genitourinary Disorders: No - PSYCHIATRIC Hx Substance Use: No - SURGICAL HISTORY Hx Surgeries: Yes Other/Comment: eye surgeries - ANESTHESIA Hx Anesthesia: Yes Hx Anesthesia Reactions: No Meds Allergies/Adverse Reactions: Allergies Allergy/AdvReac Type Severity Reaction Status Date / Time No Known Allergies Allergy Verified 08/27/14 14:51 - Medications Medications: Current Medications Duloxetine HCl (Cymbalta) 60 mg PO DAILY [facility] Last Admin: 03/04/17 09:42 Dose: 60 mg Hydralazine HCl (Apresoline) 10 mg IVP Q6H PRN PRN Reason: Systolic Blood Pressure Sodium Chloride (Sodium Chloride 0.9%) 1,000 mls @ 100 mls/hr IV .Q10H [facility] Last Admin: 03/04/17 14:58 Dose: Not Given Metronidazole (Flagyl) 100 mls @ 100 mls/hr IVPB Q8 [facility] Last Admin: 03/04/17 14:11 Dose: 100 mls/hr Piperacillin Sod/Tazobactam (Sod 3.375 gm/ Sodium Chloride) 100 mls @ 200 mls/ hr IVPB Q6H [facility] Last Admin: 03/04/17 14:11 Dose: 200 mls/hr Lorazepam (Ativan) 0.5 mg IVP ONCE PRN PRN Reason: Anxiety Morphine Sulfate (Morphine) 2 mg IVP Q4 PRN PRN Reason: Pain, moderate (4-7) Last Admin: 03/04/17 14:13 Dose: 2 mg Ondansetron HCl (Zofran Inj) 4 mg IVP Q6H PRN PRN Reason: Nausea/Vomiting Pantoprazole Sodium (Protonix Inj) [address] [facility] Last Admin: 03/04/17 09:43 Dose: 40 mg Rosuvastatin Calcium (Crestor) [address] [facility] Physical Exam - Constitutional Appears: No Acute Distress - Head Exam Head Exam: ATRAUMATIC, NORMOCEPHALIC - Eye Exam Eye Exam: absent: EOMI Pupil Exam: absent: PERRL - Neck Exam Neck exam: Negative for: Lymphadenopathy, Thyromegaly - Respiratory Exam Respiratory Exam: NORMAL BREATHING PATTERN. absent: Rales, Rhonchi, Wheezes - Cardiovascular Exam Cardiovascular Exam: REGULAR RHYTHM, +S1, +S2. absent: Gallop, Rubs, Systolic Murmur - GI/Abdominal Exam GI & Abdominal Exam: Hypoactive Bowel Sounds, Soft, Tenderness. absent: Mass, Organomegaly Additional comments: Periumbilical tenderness to palpation - Rectal Exam Rectal Exam: Deferred - Extremities Exam Extremities exam: Negative for: calf tenderness, pedal edema Results - Vital Signs Recent Vital Signs: Last Vital Signs Temp 99.3 F 03/04/17 15:00 Pulse 109 H 03/04/17 17:58 Resp 20 03/04/17 15:00 BP 139/69 03/04/17 15:00 Pulse Ox 93 L 03/04/17 15:00 - Labs Result Diagrams: 03/04/17 07:55 03/04/17 07:55 Labs: Laboratory Results - last 24 hr 03/04/17 07:55 WBC 10.6 RBC 3.95 Hgb 11.2 Hct 33.7 L MCV 85.4 MCH 28.4 MCHC 33.3 RDW 14.4 Plt Count 113 L MPV 12.2 H Neut % (Auto) 85.6 H Lymph % (Auto) 8.1 L Cache % (Auto) 6.1 Eos % (Auto) 0.1 Baso % (Auto) 0.1 Neut # 9.1 H Lymph # 0.9 L Cache # 0.6 Eos # 0.0 Baso # 0.0 Neutrophils % (Manual) 66 Band Neutrophils % 19 H* Lymphocytes % (Manual) 8 L Reactive Lymphs % 1 H Monocytes % (Manual) 6 Toxic Granulation Present Dohle Bodies Present Platelet Estimate Slightly decreased L Large Platelets Present Sodium 139 Potassium 3.6 Chloride 106 Carbon Dioxide 21 L Anion Gap 16 BUN 11 Creatinine 0.8 Est GFR ( Amer) > 60 Est GFR (Non-Af Amer) > 60 Random Glucose 114 H Calcium 6.8 L Assessment & Plan (1) Abdominal pain Assessment and Plan: This is an 81 year old woman with a two month history of abdominal pain which worsened on the day prior to admission and localized to the RLQ. She underwent appendectomy. Please have the patient follow up with me in the office. Status: Acute
[2017-03-05] MEDS: Piperacillin/Tazobact 3.375 GM in Sodium Chloride 100 ML IVPB SCH ×3 (02:37→19:49)
[2017-03-05] MEDS: metroNIDAZOLE IV 500 mg/100 ml 100 ML IVPB SCH ×3 (05:15→21:29)
--- NOTE | 2017-03-05 08:13 | CP.PCM.PN ---
Subjective - Date & Time of Evaluation Date of Evaluation: 03/05/17 Time of Evaluation: 08:10 - Subjective Subjective: Surgery: Dr. Cain Pt seen and examined. No acute overnight events. Pt states she's feeling well, pain is well controlled and she is ambulating. She states she would like to go home today. She admits to tolerating her diet. Denies N/V, F/C. Objective - Vital Signs/Intake and Output Vital Signs (last 24 hours): Temp Pulse Resp BP Pulse Ox 98.2 F 89 20 140/72 97 03/05/17 07:29 03/05/17 07:29 03/05/17 07:29 03/05/17 07:29 03/05/17 07:29 Intake and Output: 03/05/17 03/05/17 06:59 18:59 Intake Total 1300 Balance 1300 - Medications Medications: Current Medications Duloxetine HCl (Cymbalta) 60 mg PO DAILY [facility] Last Admin: 03/04/17 09:42 Dose: 60 mg Hydralazine HCl (Apresoline) 10 mg IVP Q6H PRN PRN Reason: Systolic Blood Pressure Sodium Chloride (Sodium Chloride 0.9%) 1,000 mls @ 100 mls/hr IV .Q10H [facility] Last Admin: 03/04/17 14:58 Dose: Not Given Metronidazole (Flagyl) 100 mls @ 100 mls/hr IVPB Q8 [facility] Last Admin: 03/05/17 05:15 Dose: 100 mls/hr Piperacillin Sod/Tazobactam (Sod 3.375 gm/ Sodium Chloride) 100 mls @ 200 mls/ hr IVPB Q6H [facility] Last Admin: 03/05/17 07:57 Dose: 200 mls/hr Lorazepam (Ativan) 0.5 mg IVP ONCE PRN PRN Reason: Anxiety Morphine Sulfate (Morphine) 2 mg IVP Q4 PRN PRN Reason: Pain, moderate (4-7) Last Admin: 03/04/17 14:13 Dose: 2 mg Ondansetron HCl (Zofran Inj) 4 mg IVP Q6H PRN PRN Reason: Nausea/Vomiting Pantoprazole Sodium (Protonix Inj) 40 mg IVP DAILY [facility] Last Admin: 03/04/17 09:43 Dose: 40 mg Rosuvastatin Calcium (Crestor) 10 mg PO HS [facility] Last Admin: 03/04/17 21:00 Dose: 10 mg - Labs Labs: 03/04/17 07:55 03/04/17 07:55 PT 12.2 SECONDS (9.7-12.2) 03/02/17 22:44 INR 1.1 03/02/17 22:44 APTT 30 SECONDS (21-34) 03/02/17 22:44 - Constitutional Appears: Well, No Acute Distress - Head Exam Head Exam: ATRAUMATIC, NORMOCEPHALIC - Eye Exam Eye Exam: Normal appearance - ENT Exam ENT Exam: Mucous Membranes Moist - Respiratory Exam Respiratory Exam: NORMAL BREATHING PATTERN - Cardiovascular Exam Cardiovascular Exam: RRR - GI/Abdominal Exam GI & Abdominal Exam: Soft, Tenderness (around incisions). absent: Distended, Guarding, Rebound - Neurological Exam Neurological Exam: Alert, Awake, Oriented x3 - Skin Skin Exam: Dry, Intact, Warm Assessment and Plan - Assessment and Plan (Free Text) Assessment: 81F s/p lap appendectomy; POD#2 Plan: - Pt clear for DC from surgical standpoint - f/u with Dr. Cain in 1 week - No heavy lifting, ok to shower - d/w Dr. Ant Proctor, PGY-2 Surgery
[2017-03-05] MEDS ORDERED: Bisacodyl 5mg EC Tab PO ONE (10:53)
[2017-03-05 11:18] LABS: BASO % 0.3 % (0.0-2.0); EOS # 0.1 K/uL (0.0-0.7); EOS % 1.3 % (0.0-4.0); HEMATOCRIT 33.8 % (34.0-47.0); LYMPH # 0.9 K/uL (1.0-4.3); MEAN CELL VOLUME 85.7 fL (81.0-99.0); MEAN CORPUSCULAR HEMOGLOBIN 28.2 pg (27.0-31.0); MEAN CORPUSCULAR HGB CONC 32.8 g/dL (33.0-37.0); MEAN PLATELET VOLUME 11.9 fL (7.2-11.7); MONO # 0.5 K/uL (0.0-0.8); MONO % 4.3 % (0.0-10.0); PLATELET COUNT 125 K/uL (130-400); RED CELL DISTRIBUTION WIDTH 14.3 % (11.5-14.5); WHITE BLOOD COUNT 10.9 K/uL (4.8-10.8)
[2017-03-05 11:27] LABS: CHLORIDE 109 mmol/L (98-107)
[2017-03-05 11:28] LABS: POTASSIUM 3.5 mmol/L (3.6-5.2); SODIUM 141 mmol/L (132-148)
[2017-03-05 11:30] LABS: ALB/GLOB RATIO 0.9 (1.0-2.1); ALKALINE PHOSPHATASE 70 U/L (38-126); ALT/SGPT 17 U/L (9-52); AST/SGOT 27 U/L (14-36); BLOOD UREA NITROGEN 8 mg/dL (7-17); CARBON DIOXIDE 19 mmol/L (22-30); GFR AFRICAN-AMERICAN > 60; TOTAL PROTEIN 6.1 g/dL (6.3-8.3)
[2017-03-05 11:31] LABS: CALCIUM 7.2 mg/dl (8.6-10.4); GLUCOSE,RANDOM 107 mg/dL (65-105)
[2017-03-05 11:45] LABS: NEUTROPHIL 87 % (50-75); TOTAL CELLS COUNTED 100
[2017-03-05 11:46] LABS: GIANT PLATELETS PRESENT; LARGE PLATELETS PRESENT
[2017-03-05] MEDS ORDERED: Potassium Chloride 20 mEq ER Tab PO ONE (11:52)
--- NOTE | 2017-03-05 14:53 | CP.PCM.PN ---
Addendum entered and electronically signed by Shreya Hernández DO 03/05/17 17:54: Per nursing, pt with BM earlier this afternoon. Original Note: <Shreya Hernández - Last Filed: 03/05/17 14:49> Subjective - Date & Time of Evaluation Date of Evaluation: 03/05/17 Time of Evaluation: 08:00 - Subjective Subjective: Internal medicine progress note for Hospitalist Service- Shreya Hernández, PGY-1 Pt S & E at bedside. Pt reports desire to go home, pain is well controlled/minimal, admits to flatus , tolerating diet (although does not like hospital food- it's cold). Denies N/V /F/C, SOB, CP, ambulating. Has not had BM- usually only does so at home. Objective - Vital Signs/Intake and Output Vital Signs (last 24 hours): Temp Pulse Resp BP Pulse Ox 98.2 F 89 20 140/72 97 03/05/17 07:29 03/05/17 08:00 03/05/17 07:29 03/05/17 07:29 03/05/17 07:29 Intake and Output: 03/05/17 03/05/17 06:59 18:59 Intake Total 1300 Balance 1300 - Medications Medications: Current Medications Duloxetine HCl (Cymbalta) 60 mg PO DAILY [facility] Last Admin: 03/05/17 09:04 Dose: 60 mg Hydralazine HCl (Apresoline) 10 mg IVP Q6H PRN PRN Reason: Systolic Blood Pressure Metronidazole (Flagyl) 100 mls @ 100 mls/hr IVPB Q8 [facility] Last Admin: 03/05/17 13:31 Dose: 100 mls/hr Piperacillin Sod/Tazobactam (Sod 3.375 gm/ Sodium Chloride) 100 mls @ 200 mls/ hr IVPB Q6H [facility] Last Admin: 03/05/17 07:57 Dose: 200 mls/hr Lorazepam (Ativan) 0.5 mg IVP ONCE PRN PRN Reason: Anxiety Morphine Sulfate (Morphine) 2 mg IVP Q4 PRN PRN Reason: Pain, moderate (4-7) Last Admin: 03/04/17 14:13 Dose: 2 mg Ondansetron HCl (Zofran Inj) 4 mg IVP Q6H PRN PRN Reason: Nausea/Vomiting Pantoprazole Sodium (Protonix Inj) 40 mg IVP DAILY [facility] Last Admin: 03/05/17 09:04 Dose: 40 mg Rosuvastatin Calcium (Crestor) 10 mg PO HS [facility] Last Admin: 03/04/17 21:00 Dose: 10 mg - Labs Labs: 03/05/17 11:08 03/05/17 11:08 PT 12.2 SECONDS (9.7-12.2) 03/02/17 22:44 INR 1.1 03/02/17 22:44 APTT 30 SECONDS (21-34) 03/02/17 22:44 - Constitutional Appears: Non-toxic, No Acute Distress - Head Exam Head Exam: ATRAUMATIC, NORMAL INSPECTION, NORMOCEPHALIC - Eye Exam Eye Exam: EOMI, Normal appearance, PERRL Pupil Exam: NORMAL ACCOMODATION, PERRL - ENT Exam ENT Exam: Mucous Membranes Moist, Normal Exam - Neck Exam Neck Exam: Full ROM, Normal Inspection - Respiratory Exam Respiratory Exam: Clear to Ausculation Bilateral, NORMAL BREATHING PATTERN. absent: Rales, Rhonchi, Wheezes, Respiratory Distress - Cardiovascular Exam Cardiovascular Exam: REGULAR RHYTHM, +S1, +S2 - GI/Abdominal Exam GI & Abdominal Exam: Soft, Tenderness (minimal, RLQ, LLQ), Normal Bowel Sounds. absent: Distended, Firm, Guarding, Rigid - Extremities Exam Extremities Exam: Normal Inspection. absent: Pedal Edema - Back Exam Back Exam: Full ROM, NORMAL INSPECTION - Neurological Exam Neurological Exam: Alert, Awake, CN II-XII Intact, Oriented x3 - Psychiatric Exam Psychiatric exam: Normal Affect, Normal Mood - Skin Skin Exam: Dry, Intact, Normal Color, Warm Additional comments: Surgical sites over LLQ x2 and umbilicus with clear glue, no erythema or drainage noted Assessment and Plan - Assessment and Plan (Free Text) Assessment: Diffuse Lower Abdominal Pain POD#2 s/p lap appendectomy Afebrile over 24H Mild leukocytosis - 10.9 Bands 4 from 19 Cont Zosyn 3.375 gm IV q6h Cont Flagyl 500 mg IVPB Q8H Cont Dilaudid 0.5 mg IVP Q4H PRN Cont NS 100 cc/hr EKG-NSR, no ST changes (please see full report) CXR - no active disease Abd/Pelvis CT w/o contrast - enlarged appendix, 14 mm, periappendiceal inflammatory changes; no periappendiceal abscess; diverticulosis of sigmoid colon, no diverticulitis; no bowel obstruction; acute, uncomplicated appendicitis (please see full report) Abd/Pelvis CT angiography unremarkable (see full report) Echocardiogram concentric LVH, LVEF 77% GI recs- FU outpatient Surgery recs- pt stable for d/c home, no need for outpatient Abx, FU in [address] Cain, no heavy lifting, ok to shower Hypokalemia K 3.5 Replaced 20mEq Monitor Constipation Prune juice Dulcolax 5mg x 1 Monitor HTN BP WNL Cont Hydralazine 10 mg IV q6h prn for SBP >160 Hyperlipidemia Con Home medication- rosuvostatin Anxiety/Depression Ativan 0.1 mg IV once prn Home medication of cymbalta held GI/DVT ppx Protonix 40 mg IV daily SCDs Heparin 5000 units sc q8h Dispo Fu AM labs Possible d/c home pending resolution of bandemia To FU with Dr. Cain in 1 week to FU with Dr. Araujo as outpatient. PT/OT OOBTC Ambulate Activity as ansley DW attending <Carrie Keith V - Last Filed: 03/06/17 22:20> Objective - Vital Signs/Intake and Output Vital Signs (last 24 hours): Temp Pulse Resp BP Pulse Ox 98.2 F 92 H 20 160/80 H 96 03/06/17 07:36 03/06/17 07:36 03/06/17 07:36 03/06/17 07:36 03/06/17 07:36 - Labs Labs: 03/06/17 07:49 03/06/17 07:49 PT 12.2 SECONDS (9.7-12.2) 03/02/17 22:44 INR 1.1 03/02/17 22:44 APTT 30 SECONDS (21-34) 03/02/17 22:44 Attending/Attestation - Attestation I have personally seen and examined this patient.: Yes I have fully participated in the care of the patient.: Yes I have reviewed all pertinent clinical information, including history, physical exam and plan: Yes Notes (Text): This is a late computer entry for 03/05/17. Patient seen, examined, and case discussed with day-time resident. Patient seen this morning. Reporting improved pain over the right lower abdomen located to surgical site. Patient is POD 2 from the OR for appendicitis. Patient reports flatus and in the evening, reported a bowel movement. Patient does not want subacute rehab, would like to go home. Will continue IV abx; patient's leukocytosis improving, but has bands which are also improving persistent but mild elevated Per surgery note, patient is stable for discharge from their standpoint, recommended to follow-up in one week Disposition: monitor for flatus/bowel movement, and monitor bandemia on IV abx to cover appendicitis postoperatively Assessment/Plan Abdominal Pain * Abd/Pelvis CT w/o contrast - enlarged appendix, 14 mm, periappendiceal inflammatory changes; no periappendiceal abscess; diverticulosis of sigmoid colon, no diverticulitis; no bowel obstruction; acute, uncomplicated appendicitis (please see full report) * Angiography (03/03/17): essentially unremarkable Ct angiogram without evidence dissection, stenosis, or aneurysm. No evidence of mesenteric ischemia * General surgery (Dr. Cain) on board--> POD 2 for gangrenous appendicitis; stable from their standpoint * Gastroenterology (Dr. Antonio) on board-->patient's GI doctor; had a recent colonoscopy with him; does not know results. * Cardiology (Dr. Olson) on board-->requested by patient's primary doctor, Luz Marina Vallejo for possible cardiac clearance * Abx: Zosyn 3.375g IV Q 6hours and Flagyl 500mg IV Q 8 hours * Echocardiogram (03/02/17): borderline concentric left ventricular hypertrophy, left atrium is borderline dilated. left ventricular diastolic function is normal ; patient seen and evaluated by cardiology-->help appreciated * NS 100 cc/hr Frequency * Abnormal UA * Urine culture (03/02): no growth * Denies today Leukocytosis * possible appendicitis based on CT scan-->POD 2 for lap appendicitis * improved leukocytosis, improving bands * Urine culture (03/02/17): no growth * Blood cultures (03/02/17): no growth for 48 hours X2 HTN: * Hydralazine 10 mg IV q6h prn for SBP >160 * Held Home medications of metoprolol, losartan, amlodipine patient is NPO * Monitor vital signs Hyperlipidemia: * restarted statin Anxiety/Depression: * Ativan 0.5 mg IV once prn * Resumed patient's cymbalta today Prophylactic Measures: * GI: Protonix 40 mg IV qd * DVT: SCDs, held Heparin 5000 units sc q8h * Diet resumed today
[2017-03-05] MEDS: Sodium Chloride 0.9% 1,000 ML IV SCH (19:45)
[2017-03-06] MEDS: Piperacillin/Tazobact 3.375 GM in Sodium Chloride 100 ML IVPB SCH ×2 (02:13→07:48)
[2017-03-06] MEDS: metroNIDAZOLE IV 500 mg/100 ml 100 ML IVPB SCH (05:34)
[2017-03-06 07:39] VITALS: BP 160/80; PULSE 92; TEMP 98.2; O2SAT 96
[2017-03-06 08:08] LABS: BASO % 0.2 % (0.0-2.0); EOS # 0.3 K/uL (0.0-0.7); HEMATOCRIT 39.1 % (34.0-47.0); LYMPH % 9.5 % (20.0-40.0); MEAN CORPUSCULAR HEMOGLOBIN 28.3 pg (27.0-31.0); MEAN CORPUSCULAR HGB CONC 32.9 g/dL (33.0-37.0); MEAN PLATELET VOLUME 11.3 fL (7.2-11.7); MONO # 0.5 K/uL (0.0-0.8); MONO % 4.4 % (0.0-10.0); PLATELET COUNT 200 K/uL (130-400); RED CELL DISTRIBUTION WIDTH 14.3 % (11.5-14.5); WHITE BLOOD COUNT 10.6 K/uL (4.8-10.8)
[2017-03-06 08:26] LABS: CHLORIDE 106 mmol/L (98-107)
[2017-03-06 08:27] LABS: POTASSIUM 3.3 mmol/L (3.6-5.2); SODIUM 141 mmol/L (132-148)
[2017-03-06 08:29] LABS: GFR AFRICAN-AMERICAN > 60
[2017-03-06 08:30] LABS: BLOOD UREA NITROGEN 6 mg/dL (7-17); CALCIUM 7.8 mg/dl (8.6-10.4); CARBON DIOXIDE 23 mmol/L (22-30); GLUCOSE,RANDOM 107 mg/dL (65-105)
[2017-03-06] MEDS ORDERED: Potassium Chloride 20 mEq ER Tab PO ONE (09:29)
[2017-03-06 09:47] LABS: EOSINOPHIL 5 % (0-4); NEUTROPHIL 81 % (50-75); TOTAL CELLS COUNTED 100
[2017-03-06 09:48] LABS: GIANT PLATELETS PRESENT; LARGE PLATELETS PRESENT
--- NOTE | 2017-03-06 11:22 | CP.PCM.DIS ---
<Kory Bailey - Last Filed: 03/06/17 11:22> Provider - Provider Date of Admission: 03/02/17 16:56 Attending physician: Edgardo Long MD Time Spent in preparation of Discharge (in minutes): 40 Hospital Course - Lab Results Lab Results: Micro Results 03/02/17 20:00 Blood Blood Culture - Preliminary NO GROWTH AFTER 3 DAYS 03/02/17 19:30 Blood Blood Culture - Preliminary NO GROWTH AFTER 3 DAYS 03/02/17 19:00 Urine,Clean Catch Urine Culture - Final No Growth (<1,000 CFU/ML) Most Recent Lab Values WBC 10.6 K/uL (4.8-10.8) 03/06/17 07:49 RBC 4.55 Mil/uL (3.80-5.20) 03/06/17 07:49 Hgb 12.9 g/dL (11.0-16.0) 03/06/17 07:49 Hct 39.1 % (34.0-47.0) 03/06/17 07:49 MCV 86.0 fL (81.0-99.0) 03/06/17 07:49 MCH 28.3 pg (27.0-31.0) 03/06/17 07:49 MCHC 32.9 g/dL (33.0-37.0) L 03/06/17 07:49 RDW 14.3 % (11.5-14.5) 03/06/17 07:49 Plt Count 200 K/uL (130-400) 03/06/17 07:49 MPV 11.3 fL (7.2-11.7) 03/06/17 07:49 Neut % (Auto) 82.9 % (50.0-75.0) H 03/06/17 07:49 Lymph % (Auto) 9.5 % (20.0-40.0) L 03/06/17 07:49 Ballard % (Auto) 4.4 % (0.0-10.0) 03/06/17 07:49 Eos % (Auto) 3.0 % (0.0-4.0) 03/06/17 07:49 Baso % (Auto) 0.2 % (0.0-2.0) 03/06/17 07:49 Neut # 8.8 K/uL (1.8-7.0) H 03/06/17 07:49 Lymph # 1.0 K/uL (1.0-4.3) 03/06/17 07:49 Ballard # 0.5 K/uL (0.0-0.8) 03/06/17 07:49 Eos # 0.3 K/uL (0.0-0.7) 03/06/17 07:49 Baso # 0.0 K/uL (0.0-0.2) 03/06/17 07:49 Neutrophils % (Manual) 81 % (50-75) H 03/06/17 07:49 Band Neutrophils % 1 % (0-2) 03/06/17 07:49 Lymphocytes % (Manual) 11 % (20-40) L 03/06/17 07:49 Reactive Lymphs % 1 % (0-0) H 03/04/17 07:55 Monocytes % (Manual) 2 % (0-10) 03/06/17 07:49 Eosinophils % (Manual) 5 % (0-4) H 03/06/17 07:49 Basophils % (Manual) 1 % (0-2) 03/03/17 07:10 Toxic Granulation Present 03/06/17 07:49 Dohle Bodies Present 03/04/17 07:55 Platelet Estimate Normal (NORMAL) 03/06/17 07:49 Large Platelets Present 03/06/17 07:49 Giant Platelets Present 03/06/17 07:49 RBC Morphology Normal 03/03/17 07:10 Polychromasia Slight 03/06/17 07:49 Hypochromasia (manual) Slight 03/06/17 07:49 Poikilocytosis (manual Slight 03/06/17 07:49 Anisocytosis (manual) Slight 03/06/17 07:49 Ovalocytes Slight 03/06/17 07:49 [place] Cells Slight 03/06/17 07:49 PT 12.2 SECONDS (9.7-12.2) 03/02/17 22:44 INR 1.1 03/02/17 22:44 APTT 30 SECONDS (21-34) 03/02/17 22:44 Sodium 141 mmol/L (132-148) 03/06/17 07:49 Potassium 3.3 mmol/L (3.6-5.2) L 03/06/17 07:49 Chloride 106 mmol/L (98-107) 03/06/17 07:49 Carbon Dioxide 23 mmol/L (22-30) 03/06/17 07:49 Anion Gap 15 (10-20) 03/06/17 07:49 BUN 6 mg/dL (7-17) L 03/06/17 07:49 Creatinine 0.6 MG/DL (0.7-1.2) L 03/06/17 07:49 Est GFR ( Amer) > 60 03/06/17 07:49 Est GFR (Non-Af Amer) > 60 03/06/17 07:49 Random Glucose 107 mg/dL (65-105) H 03/06/17 07:49 Lactic Acid 1.0 mmol/L (0.7-2.1) 03/02/17 22:44 Calcium 7.8 mg/dl (8.6-10.4) L 03/06/17 07:49 Phosphorus 3.1 mg/dL (2.5-4.5) 03/03/17 07:10 Magnesium 2.3 mg/dL (1.6-2.3) 03/05/17 12:01 Total Bilirubin 1.0 mg/dL (0.2-1.3) 03/05/17 11:08 AST 27 U/L (14-36) 03/05/17 11:08 ALT 17 U/L (9-52) 03/05/17 11:08 Alkaline Phosphatase 70 U/L (38-126) 03/05/17 11:08 Total Protein 6.1 g/dL (6.3-8.3) L 03/05/17 11:08 Albumin 2.9 g/dL (3.5-5.0) L 03/05/17 11:08 Globulin 3.2 gm/dL (2.2-3.9) 03/05/17 11:08 Albumin/Globulin Ratio 0.9 (1.0-2.1) L 03/05/17 11:08 Lipase 63 U/L (23-300) 03/02/17 10:10 Urine Color Yellow (YELLOW) 03/02/17 10:10 Urine Clarity Hazy (Clear) 03/02/17 10:10 Urine pH 7.0 (5.0-8.0) 03/02/17 10:10 Ur Specific [place] 1.016 (1.003-1.030) 03/02/17 10:10 Urine Protein 1+ mg/dL (NEGATIVE) H 03/02/17 10:10 Urine Glucose (UA) 1+ mg/dL (Normal) 03/02/17 10:10 Urine Ketones Negative mg/dL (NEGATIVE) 03/02/17 10:10 Urine Blood Negative (NEGATIVE) 03/02/17 10:10 Urine Nitrate Negative (NEGATIVE) 03/02/17 10:10 Urine Bilirubin Negative (NEGATIVE) 03/02/17 10:10 Urine Urobilinogen Normal mg/dL (0.2-1.0) 03/02/17 10:10 Ur Leukocyte Esterase 2+ Nestor/uL (Negative) H 03/02/17 10:10 Urine WBC (Auto) 21 /hpf (0-5) H 03/02/17 10:10 Urine RBC (Auto) 3 /hpf (0-3) 03/02/17 10:10 Ur Squamous Epith Cells 3 /hpf (0-5) 03/02/17 10:10 Urine Bacteria Rare (<OCC) 03/02/17 10:10 Discharge Exam - Head Exam Head Exam: ATRAUMATIC, NORMAL INSPECTION, NORMOCEPHALIC Discharge Plan - Discharge Medications Prescriptions: Ciprofloxacin HCl [Cipro] 500 mg PO BID #10 tablet Metronidazole [Flagyl] 500 mg PO BID #10 tablet - Follow Up Plan Condition: STABLE Disposition: HOME/ ROUTINE Instructions: Appendicitis (DC), Acute Abdominal Pain (DC), Acute Abdominal Pain (GEN) Additional Instructions: Patient medically stable for discharge as per Dr. Keith and Dr. Cain. Patient is to take new medications Ciprofloxacin 500 mg by mouth twice per day and Flagyl 500 mg by mouth twice per day for 5 days with yogurt. Patient is to resume home medications as previously prescribed. Patient is to follow up with PMD (Dr. Alfaro), Surgery (Dr. Cain), and GI (Dr. Araujo) within 1 week. Patient is prohibited from doing heavy lifting. Patient can shower. Please return to ER if symptoms persist or condition worsens. All instructions stated above were discussed in detail with patient. She verbalized understanding and agreement. Referrals: Bello Cain MD [Staff Provider] - Myron Olson MD [Staff Provider] - Esequiel Antonio MD [Staff Provider] - <SagarCarrie V - Last Filed: 03/06/17 22:48> Provider - Provider Date of Admission: 03/02/17 16:56 Attending physician: Edgardo Long MD Hospital Course - Lab Results Lab Results: Micro Results 03/02/17 20:00 Blood Blood Culture - Preliminary NO GROWTH AFTER 3 DAYS 03/02/17 19:30 Blood Blood Culture - Preliminary NO GROWTH AFTER 3 DAYS 03/02/17 19:00 Urine,Clean Catch Urine Culture - Final No Growth (<1,000 CFU/ML) Most Recent Lab Values WBC 10.6 K/uL (4.8-10.8) 03/06/17 07:49 RBC 4.55 Mil/uL (3.80-5.20) 03/06/17 07:49 Hgb 12.9 g/dL (11.0-16.0) 03/06/17 07:49 Hct 39.1 % (34.0-47.0) 03/06/17 07:49 MCV 86.0 fL (81.0-99.0) 03/06/17 07:49 MCH 28.3 pg (27.0-31.0) 03/06/17 07:49 MCHC 32.9 g/dL (33.0-37.0) L 03/06/17 07:49 RDW 14.3 % (11.5-14.5) 03/06/17 07:49 Plt Count 200 K/uL (130-400) 03/06/17 07:49 MPV 11.3 fL (7.2-11.7) 03/06/17 07:49 Neut % (Auto) 82.9 % (50.0-75.0) H 03/06/17 07:49 Lymph % (Auto) 9.5 % (20.0-40.0) L 03/06/17 07:49 Ballard % (Auto) 4.4 % (0.0-10.0) 03/06/17 07:49 Eos % (Auto) 3.0 % (0.0-4.0) 03/06/17 07:49 Baso % (Auto) 0.2 % (0.0-2.0) 03/06/17 07:49 Neut # 8.8 K/uL (1.8-7.0) H 03/06/17 07:49 Lymph # 1.0 K/uL (1.0-4.3) 03/06/17 07:49 Ballard # 0.5 K/uL (0.0-0.8) 03/06/17 07:49 Eos # 0.3 K/uL (0.0-0.7) 03/06/17 07:49 Baso # 0.0 K/uL (0.0-0.2) 03/06/17 07:49 Neutrophils % (Manual) 81 % (50-75) H 03/06/17 07:49 Band Neutrophils % 1 % (0-2) 03/06/17 07:49 Lymphocytes % (Manual) 11 % (20-40) L 03/06/17 07:49 Reactive Lymphs % 1 % (0-0) H 03/04/17 07:55 Monocytes % (Manual) 2 % (0-10) 03/06/17 07:49 Eosinophils % (Manual) 5 % (0-4) H 03/06/17 07:49 Basophils % (Manual) 1 % (0-2) 03/03/17 07:10 Toxic Granulation Present 03/06/17 07:49 Dohle Bodies Present 03/04/17 07:55 Platelet Estimate Normal (NORMAL) 03/06/17 07:49 Large Platelets Present 03/06/17 07:49 Giant Platelets Present 03/06/17 07:49 RBC Morphology Normal 03/03/17 07:10 Polychromasia Slight 03/06/17 07:49 Hypochromasia (manual) Slight 03/06/17 07:49 Poikilocytosis (manual Slight 03/06/17 07:49 Anisocytosis (manual) Slight 03/06/17 07:49 Ovalocytes Slight 03/06/17 07:49 [place] Cells Slight 03/06/17 07:49 PT 12.2 SECONDS (9.7-12.2) 03/02/17 22:44 INR 1.1 03/02/17 22:44 APTT 30 SECONDS (21-34) 03/02/17 22:44 Sodium 141 mmol/L (132-148) 03/06/17 07:49 Potassium 3.3 mmol/L (3.6-5.2) L 03/06/17 07:49 Chloride 106 mmol/L (98-107) 03/06/17 07:49 Carbon Dioxide 23 mmol/L (22-30) 03/06/17 07:49 Anion Gap 15 (10-20) 03/06/17 07:49 BUN 6 mg/dL (7-17) L 03/06/17 07:49 Creatinine 0.6 MG/DL (0.7-1.2) L 03/06/17 07:49 Est GFR ( Amer) > 60 03/06/17 07:49 Est GFR (Non-Af Amer) > 60 03/06/17 07:49 Random Glucose 107 mg/dL (65-105) H 03/06/17 07:49 Lactic Acid 1.0 mmol/L (0.7-2.1) 03/02/17 22:44 Calcium 7.8 mg/dl (8.6-10.4) L 03/06/17 07:49 Phosphorus 3.1 mg/dL (2.5-4.5) 03/03/17 07:10 Magnesium 2.3 mg/dL (1.6-2.3) 03/05/17 12:01 Total Bilirubin 1.0 mg/dL (0.2-1.3) 03/05/17 11:08 AST 27 U/L (14-36) 03/05/17 11:08 ALT 17 U/L (9-52) 03/05/17 11:08 Alkaline Phosphatase 70 U/L (38-126) 03/05/17 11:08 Total Protein 6.1 g/dL (6.3-8.3) L 03/05/17 11:08 Albumin 2.9 g/dL (3.5-5.0) L 03/05/17 11:08 Globulin 3.2 gm/dL (2.2-3.9) 03/05/17 11:08 Albumin/Globulin Ratio 0.9 (1.0-2.1) L 03/05/17 11:08 Lipase 63 U/L (23-300) 03/02/17 10:10 Urine Color Yellow (YELLOW) 03/02/17 10:10 Urine Clarity Hazy (Clear) 03/02/17 10:10 Urine pH 7.0 (5.0-8.0) 03/02/17 10:10 Ur Specific [place] 1.016 (1.003-1.030) 03/02/17 10:10 Urine Protein 1+ mg/dL (NEGATIVE) H 03/02/17 10:10 Urine Glucose (UA) 1+ mg/dL (Normal) 03/02/17 10:10 Urine Ketones Negative mg/dL (NEGATIVE) 03/02/17 10:10 Urine Blood Negative (NEGATIVE) 03/02/17 10:10 Urine Nitrate Negative (NEGATIVE) 03/02/17 10:10 Urine Bilirubin Negative (NEGATIVE) 03/02/17 10:10 Urine Urobilinogen Normal mg/dL (0.2-1.0) 03/02/17 10:10 Ur Leukocyte Esterase 2+ Nestor/uL (Negative) H 03/02/17 10:10 Urine WBC (Auto) 21 /hpf (0-5) H 03/02/17 10:10 Urine RBC (Auto) 3 /hpf (0-3) 03/02/17 10:10 Ur Squamous Epith Cells 3 /hpf (0-5) 03/02/17 10:10 Urine Bacteria Rare (<OCC) 03/02/17 10:10 Attending/Attestation - Attestation I have personally seen and examined this patient.: Yes I have fully participated in the care of the patient.: Yes I have reviewed all pertinent clinical information, including history, physical exam and plan: Yes Notes (Text): Patient seen, examined, and case discussed with day-time resident. Patient seen this morning on rounds. Patient reports she is feeling much better and eager to go home. Patient reports little to no pain at the surgical site. Patient does not like the food here and wants her own food at home. Patient denies acute complaints. Patient's white count has normalized and afebrile. Electrolyes repleted prior to discharge. Discussed with patient's PMD that patient is stable for discharge, given one week of antibiotics to cover post-operative and to follow-up with surgery in a week and resume her home medications. Discharge order and discharge instructions discussed with day-time resident. Patient is medically stable for discharge. Patient to follow-up with general surgery in one week and her GI within one month. New prescriptions: 1) Ciprofloxcin 500mg PO BID for 5 days (10 pills/no refills) 2) Flagyl 500mg PO bid for 5 days (10 pills/no refills) Advised to take with yogurt. Patient resume her home medications. This is a summary of patient's hospitalization. Please review EMR for further details. Assessment/Plan Abdominal Pain * Abd/Pelvis CT w/o contrast - enlarged appendix, 14 mm, periappendiceal inflammatory changes; no periappendiceal abscess; diverticulosis of sigmoid colon, no diverticulitis; no bowel obstruction; acute, uncomplicated appendicitis (please see full report) * Angiography (03/03/17): essentially unremarkable Ct angiogram without evidence dissection, stenosis, or aneurysm. No evidence of mesenteric ischemia * General surgery (Dr. Cain) on board--> POD 3 for gangrenous appendicitis; stable from their standpoint * Gastroenterology (Dr. Antonio) on board-->patient's GI doctor; had a recent colonoscopy with him; does not know results. * Cardiology (Dr. Olson) on board-->requested by patient's primary doctor, Dr. Luz Marina Vallejo for possible cardiac clearance * Abx: Zosyn 3.375g IV Q 6hours and Flagyl 500mg IV Q 8 hours * Echocardiogram (03/02/17): borderline concentric left ventricular hypertrophy, left atrium is borderline dilated. left ventricular diastolic function is normal ; patient seen and evaluated by cardiology-->help appreciated * Stabilized; Tolerating diet and has had bowel movement post-operative. * Discharged on 5 days of Cipro and Flagyl. Follow-up with surgery in one week. Frequency * Abnormal UA * Urine culture (03/02): no growth * Denies today Leukocytosis * possible appendicitis based on CT scan on admission-->POD 3 for lap appendectomy * normalized, afebrile * Urine culture (03/02/17): no growth * Blood cultures (03/02/17): no growth for 3 days HTN: * Hydralazine 10 mg IV q6h prn for SBP >160 * Held Home medications of metoprolol, losartan, amlodipine patient is NPO * Monitor vital signs * Resume home meds on discharge Hyperlipidemia: * resume home medication Anxiety/Depression: * Ativan 0.5 mg IV once prn * Resumed patient's cymbalta and ativan Prophylactic Measures: * stable for discharge today
== END 2017-03-06 13:45 | disposition home or self-care (01) | DRG 342 ==
LOC: C.ER 09:02 → C.9E 16:56 → C.3T 22:08
PROVIDERS: ADMIT Internal Medicine; ATTEND Internal Medicine
PROC: 0DTJ4ZZ Resection of Appendix, Percutaneous Endoscopic Approach (ICD-10-PCS; principal; 2017-03-03 13:00)
DX: K35.89 Other acute appendicitis (principal); N39.0 Urinary tract infection, site not specified; I10 Essential (primary) hypertension; E78.5 Hyperlipidemia, unspecified; Z88.0 Allergy status to penicillin; E78.00 Pure hypercholesterolemia, unspecified; I49.9 Cardiac arrhythmia, unspecified; Z86.73 Personal history of transient ischemic attack (TIA), and cerebral infarction without residual deficits; Z80.0 Family history of malignant neoplasm of digestive organs; F41.8 Other specified anxiety disorders; E87.6 Hypokalemia